=== PATIENT | female | born 1985 ===

== ENCOUNTER 2021-12-18 23:49 | Emergency (ER) | payer OTHER ==
--- NOTE | 2021-12-19 02:31 | ER ---
Nurse's Notes [facility] Name: Sowmya Bolanos Age: 36 yrs Sex: Female : 1985 Arrival Date: 12/18/2021 Time: 23:50 Bed 6 Private MD: Diagnosis: Other pneumonia, unspecified organism-Left Base;Shortness of breath;Influenza B Presentation: 12/19 00:06 Chief complaint: Patient states: I was diagnosed with bronchitis and strep last week. i kd3 have been having tightness in my chest and its hard to breath. Coronavirus screen: Vaccine status: Patient reports receiving the 1st dose of the Covid vaccine. Ebola Screen: No symptoms or risks identified at this time. Initial Sepsis Screen: Does the patient meet any 2 criteria? No. Patient's initial sepsis screen is negative. Does the patient have a suspected source of infection? No. Patient's initial sepsis screen is negative. Risk Assessment: Do you want to hurt yourself or someone else? Patient reports no desire to harm self or others. Onset of symptoms was November 2021. 00:06 Method Of Arrival: Ambulatory kd3 00:06 Acuity: ROWENA 3 kd3 Triage Assessment: 00:09 General: Appears in no apparent distress. Behavior is calm, cooperative. Pain: Denies kd3 pain. Respiratory: Reports shortness of breath at rest Onset: The symptoms/episode began/occurred gradually, the patient has mild shortness of breath. 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 - Social history:: Smoking status: unknown. Screenin:43 Abuse screen: Denies threats or abuse. Denies injuries from another. Nutritional aa9 screening: No deficits noted. Tuberculosis screening: No symptoms or risk factors identified. Fall Risk None identified. Assessment: 00:15 General: Appears in no apparent distress. Behavior is calm, cooperative. Pain: as6 Complains of pain in chest. Neuro: Level of Consciousness is awake, alert, Oriented to person, place, time, situation. Cardiovascular: Reports chest pain, shortness of breath. Respiratory: Reports shortness of breath cough that is Respiratory effort is even, unlabored. EENT: Reports nasal discharge that is watery. Vital Signs: 00:06 BP 127 / 77; Pulse 74; Resp 18; Temp 98(O); Pulse Ox 100% on R/A; Weight 88.45 kg; kd3 Height 5 ft. 3 in. (160.02 cm); Pain 0/10; 01:47 BP 111 / 73; Pulse 72; Resp 19 S; Pulse Ox 99% on R/A; kl 00:06 Body Mass Index 34.54 (88.45 kg, 160.02 cm) kd3 ED Course: 12/18 23:50 Patient arrived in ED. bp1 23:57 Clifton Lee RN is Primary Nurse. as6 12/19 00:09 Triage completed. kd3 00:09 Arm band placed on right wrist. kd3 00:20 Cory Oliver MD is Attending Physician. kdr 00:43 Bed in low position. Call light in reach. Side rails up X2. Adult w/ patient. Client aa9 placed on continuous cardiac and pulse oximetry monitoring. NIBP monitoring applied. Warm blanket given. 00:46 Flu Sent. as6 00:46 COVID-19 SARS RT PCR (Document "Date of Onset" if Symptomatic) Sent. as6 01:11 CXR XRAY In Process Unspecified. EDMS 02:47 No provider procedures requiring assistance completed. aa9 02:50 Patient did not have IV access during this emergency room visit. aa9 Administered Medications: 02:46 Drug: Zithromax (azithromycin) 500 mg Route: PO; aa9 02:46 Follow up: Response: No adverse reaction aa9 Medication: 02:50 VIS not applicable for this client. aa9 Outcome: 02:30 Discharge ordered by . kdr 02:49 Condition: stable aa9 02:49 Discharged to home ambulatory, with significant other. aa9 02:49 Discharge instructions given to patient, significant other, Instructed on discharge instructions, follow up and referral plans. medication usage, Prescriptions given X 1. 02:52 Patient left the ED. aa9 Signatures: Dispatcher [employer] Madai Naranjo RN RN kl Rittger, Kevin, MD MD kdr [place]ia[place], Brittany bp1 Clifton Lee RN RN as6 Mattie Bryan RN RN kd3 Latia Buckley RN RN aa9 Corrections: (The following items were deleted from the chart) 00:09 00:09 [place] Meds: None; kd3 kd3
--- NOTE | 2021-12-19 02:31 | EDPHYS ---
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 - Social history:: Smoking status: unknown. Vital Signs: 00:06 BP 127 / 77; Pulse 74; Resp 18; Temp 98(O); Pulse Ox 100% on R/A; Weight 88.45 kg; kd3 Height 5 ft. 3 in. (160.02 cm); Pain 0/10; 01:47 BP 111 / 73; Pulse 72; Resp 19 S; Pulse Ox 99% on R/A; kl 00:06 Body Mass Index 34.54 (88.45 kg, 160.02 cm) kd3 MDM: 02:30 Patient medically screened. kdr 12/19 00:22 Order name: COVID-19 SARS RT PCR (Document "Date of Onset" if Symptomatic); Complete kdr Time: 02:22 12/19 00:22 Order name: Flu; Complete Time: 02:22 kdr 12/19 00:48 Order name: CXR XRAY kdr Administered Medications: 02:46 Drug: Zithromax (azithromycin) 500 mg Route: PO; aa9 02:46 Follow up: Response: No adverse reaction aa9 Disposition Summary: 12/19/21 02:30 Discharge Ordered Location: Home kdr Problem: an ongoing problem kdr Symptoms: have improved kdr Condition: Stable kdr Diagnosis - Other pneumonia, unspecified organism - Left Base kdr - Shortness of breath kdr - Influenza B kdr Followup: kdr - With: Private Physician - When: 2 - 3 days - Reason: If symptoms return, Further diagnostic work-up, Recheck today's complaints, Continuance of care, Re-evaluation by your physician Discharge Instructions: - Discharge Summary Sheet kdr - Community-Acquired Pneumonia, Adult kdr - Influenza, Adult, [id number] kdr Forms: - Medication Reconciliation Form kdr - Thank You Letter kdr - Antibiotic Education kdr - Work release form aa9 Prescriptions: - Zithromax Z-Sorin 250 mg Oral Tablet - take 1 tablet by ORAL route once daily for 4 days; 4 tablet; Refills: 0, kdr Product Selection Permitted Addendum: 12/20/2021 03:05 Addendum: Patient was diagnosed with bronchitis and strep last week. Since then she has k dr continued to have chest tightness and cough. She states it feels hard to breathe. Signatures: Dispatcher [employer] EDRI Cory Oliver MD MD kdr Doucette, Kyli RN RN kd3 Latia Buckley RN RN aa9 Corrections: (The following items were deleted from the chart) 12/19 00:09 00:09 Home Meds: None; rocky3 kd3
[2021-12-19] MEDS ORDERED: AZITHROMYCIN 250 MG TAB ONE (02:43)
[2021-12-19 03:59] VITALS: BP 111/73; O2SAT 99
[2021-12-19 04:06] VITALS: TEMP 98
--- NOTE | 2021-12-19 12:27 | RAD REPORT ---
EXAM DESCRIPTION: RAD - Chest Single View - 12/19/2021 1:09 am CLINICAL HISTORY: 36 years Female, CHEST PAIN COMPARISON: None. FINDINGS: Low lung volumes accentuating the cardiomediastinal silhouette. Left basilar opacity. No pneumothorax or pleural effusion. Osseous structures are unremarkable. IMPRESSION: Left basilar atelectasis versus pneumonia. Electronically signed by: Anson Gill MD 12/19/2021 1:26 AM CDT Due to temporary technical issues with the PACS/Fluency reporting system, reports are being signed by the in house radiologist without review as a courtesy to ensure prompt reporting. The interpreting r adiologist is fully responsible for the content of the report.
--- NOTE | 2021-12-19 12:53 | EKG ---
Test Date: 2021-12-19 Test Time: 00:00:46 Irs Agent: CARMEN MEASUREMENT RESULTS: Intervals: Rate: 72 DC: 164 QRSD: 80 QT: 414 QTc: 453 [place]: P: 49 DC: 164 QRS: 14 T: 70 INTERPRETIVE STATEMENTS: Normal sinus rhythm Low voltage QRS Nonspecific ST abnormality Abnormal ECG No previous ECG available for comparison Electronically Signed On 12-19-21 12:52:47 CDT by Nelson Zuleta
== END 2021-12-19 02:52 | disposition home or self-care (01) ==
LOC: ER 23:49
DX: J10.00 Influenza due to other identified influenza virus with unspecified type of pneumonia (principal); Z20.822 Contact with and (suspected) exposure to COVID-19
CPT/HCPCS: 93005; 87804 ×2; 71045; U0003

== ENCOUNTER 2022-12-10 11:16 | Emergency (ER) | payer OTHER ==
--- OUTSIDE RECORDS SUMMARY | 2022-12-10 11:43 | XMS REPORT | Continuity of Care Document ---
:1985 Author Organization [facility] t Address [address] [place] [address] [address] [place] [address] Care Team Providers Name Role Phone Tasha Shine MD Primary Care Physician MARCE FALCON Attending Clinician Unavailable JUANA WILEY Attending Clinician Unavailable MARCE FALCON Attending Clinician Unavailable Marce Falcon Attending Clinician Tomas WHITFIELD, Provider Not In Attending Clinician Unavailable All Fuentes MD Attending Clinician VISIT, NURSE [facility] Attending Clinician Unavailable Alicia Gray APRN Attending Clinician Erik Logan MD Attending Clinician MARCE FALCON Admitting Clinician Unavailable Marce Falcon Admitting Clinician Marce Falcon MD Admitting Clinician Payers Payer Name Policy Type Policy Number Effective Date Expiration Date S surya [employer] CHOICE POS [id number] 2018 00:00:00 II Problems Condition Condition Condition Status Onset Resolution Last Treating Co mments Source Name Details Category Date Date Treatment Clinician Date Gastroesop Gastroesop Disease Active U T hageal hageal 2-14 Health reflux reflux 00:00: disease disease 00 without without esophagiti esophagiti s s Acute URI Acute URI Disease Active Overview: [place] 1-05 [facility] 00:00: g of this 00 note might be different from the original. Last Assessmen t & Plan: Formattin g of this note might be different from the original. Recommend symptomat ic treatment including NSAIDs, zyrtec, flonase and sudafed, also discussed the importanc e of good hand hygiene, rest and hydration . RTC as needed.Valeriy velasco's spouse did test positive for covid, we discussed home precautio ns while caring for ill spouse, all questions answered. Diabetes Diabetes Disease Active 2020-06 Overview: UT mellitus mellitus 1-15 [facility] 00:00: g of this 00 note might be different from the original. 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 recurrent recurrent 00:00: g of this major major 00 note depressive depressive might be disorder, disorder, different without without from the psychotic psychotic original. features features Last Assessmen t & Plan: Start escitalop stephanie 10mg po daily Follow up in 2 weeks to evaluate response. Generalize Generalize Disease Active 2018-06 Overview : UT d anxiety d anxiety 2-13 [facility] e[facility] disorder disorder 00:00: g of this 00 note might be different from the original. Last Assessmen t & Plan: Provided with EAP brochure. Pt will be switching to [employer] after the new year and will qualify for these services at that time. In the meantime, she can start on a SSRI and if she is having significa nt distress, we can look for a counselor who takes [employer] but for now she says she can wait. Will start escitalop stephanie 10mg po daily which she has prior experienc e and good results with. Hypertrigl Hypertrigl Disease Active Overview : UT yceridemia yceridemia 8-16 [facility] 00:00: g of this 00 note might be different from the original. Last Assessmen t & Plan: Lipid abnormali ties are worsening .Nutritio nal counselin g was provided. and Pharmacot herapy as ordered.L ipids will be reassesse d in 3 months Reviewed lab work done a week ago and current liver function is normal.Wi ll restart current med and recheck in 3 months.Valeriy velasco agrees with treatment plan and voices joann clark. All questions answered. Acne Acne Disease Active DE rosacea rosacea 8-16 Health 00:00: 00 Allergic Allergic Disease Active DE rhinitis rhinitis 6-25 Health 00:00: 00 Thyroiditi Thyroiditi Disease Active 2017-06 U T s s 2-13 Health 00:00: 00 Obesity Obesity Disease Active 2017-06 Overview: [place] 2-07 [facility] 00:00: g of this 00 note might be different from the original. Last Assessmen t & Plan: Obesity is worsening .continue current managemen t with bariatric surgeon and nutrition ist you see there at their office.Ge neral weight loss/life style modificat ion strategie s discussed (elicit support from others; identify saboteurs ; non-food rewards, etc). Type 2 Type 2 Disease Active DE diabetes diabetes 3-18 Health mellitus mellitus 00:00: without without 00 complicati complicati on, on, without without long-term long-term current current use of use of insulin insulin Dysmenorrh Dysmenorrh Disease Active U T ea ea 01-11 Health 00:00: 00 Hyperlipid Hyperlipi Problem Active 2021-05-01 Memoria emia demia 22:58:32 l (disorder) (disorder) [facility] [facility] Hypothyroi Hypothyro Problem Active 2021-05-01 Memoria dism idism 22:58:32 l (disorder) (disorder) He rmann Active Problem 05/01/2021 [facility] Mixed Mixed Problem Active 2021-05-01 Memor ia anxiety anxiety 22:58:32 l and and [place] depressive depressive disorder disorder (disorder) (disorder) Active Problem 05/01/2021 [facility] Body mass Body mass Problem Active 2021-05-01 Memoria index 40+ index 40+ 22:58:32 l - severely - severely He rmann obese obese (finding) (finding) Active Problem 05/01/2021 BMI-46.7 [facility] Allergies, Adverse Reactions, Alerts Allergy Allergy Status Severity Reaction(s) Onset Inactive Treating Comm ents Source Name Type Date Date Clinician No Known No Known Active Memori a Medicati Medicati l on on [place] Allergie Allergdayo s s Social History Social Habit Start Date Stop Date Quantity Comments Source Exposure to Not sure [facility] SARS-CoV-2 (event) [facility] Alcohol Frequency History [facility] Alcohol Std Drinks History [facility] Alcohol Binge Social History 2021-04-25 2021-04-25 [facility] 14:53:53 14:53:53 [place] Alcohol intake 2020-12-26 2020-12-26 Current drinker of [facility] 00:00:00 00:00:00 alcohol (finding) Tobacco Comment 2020-11-06 2020-11-06 occasionally vapes [facility] 00:00:00 00:00:00 Tobacco use and 2020-11-06 2020-11-06 Former smokeless [facility] exposure 00:00:00 00:00:00 tobacco user Alcohol Comment 2020-11-06 2020-11-06 social [facility] 00:00:00 00:00:00 Sex [birth year] F [facility] Health 00:00:00 00:00:00 Smoking Status Start Date Stop Date Source Ex-smoker 2020-11-06 00:00:00 2020-11-06 00:00:00 [place] [facility] Medications Ordered Filled Start Stop Current Ordering Indication Dosage Frequency Signature Comments Components Source Medication Medication Date Date Medication? Clinician (SIG) Name Name amoxicillin 2021- No TAKE 2 UT (Amoxil) 09-20-16 [facility] Health 500 MG 00:00: 00:00 BY MOUTH capsule 00 :00 EVERY 8 HOURS UNTIL GONE ibuprofen 2021- No TAKE 1 UT 800 MG 09-20-16 TABLET BY Health tablet 00:00: 00:00 MOUTH 00 :00 EVERY 8 HOURS NEEDED FOR DENTAL PAIN pantoprazol 2022- No [id number] 40mg Take 1 UT e 2-06 08-15 tablet (40 Health (Protonix) 00:00: 05:59 mg total) 40 MG EC 00 :00 by mouth 1 tablet (one) time each day before breakfast. Do not crush, chew, or split. pantoprazol 2022- No [id number] 40mg Take 1 UT e 2-14 08-07 tablet (40 Health (Protonix) 00:00: 05:59 mg total) 40 MG EC 00 :00 by mouth 1 tablet (one) time each day before breakfast. Do not crush, chew, or split. nystatin-tr 2020-06- No [id number] Q.5D Apply UT iamcinolone 07-07 topically He alth (Mycolog 00:00: 05:59 2 (two) II) cream 00 :00 times a day for 14 days. fluconazole 2020-06 No [id number] 100mg QD Take 1 UT (Diflucan) 07-07 tablet Health 100 MG 00:00: 05:59 (100 mg tablet 00 :00 total) by mouth 1 (one) time each day for 14 days. tramadol 2020-06 No 50 mg = 1 Erich quyen hydrochlori -07 tab, PO, l de 50 MG 22:02: Q6H, PRN Reshma nn Oral Tablet 00 Pain Score 7-10, X 1 day, # 5 tab, 0 Refill(s), Pharmacy: [facility] #[id number], 162.56, cm, 04/27/21 21:04:00 CDT, Height, 120, kg, 04/27/21 21:04:00 CDT, Weight pantoprazol 2020-06 Yes 40 mg = 1 M emoria e 40 mg -07 tab, PO, l oral 22:02: Daily, # [place] enteric 00 30 tab, 1 coated Refill(s), tablet Pharmacy: [facility] #[id number], 162.56, cm, 04/27/21 21:04:00 CDT, Height, 120, kg, 04/27/21 21:04:00 CDT, Weight Acetaminoph 2020-06 Yes 325 mg = 1 Memoria en 325 MG 1-07 tab, PO, l Oral Tablet 21:55: Q4H, PRN He rmann 00 Pain Score 4-6, 0 Refill(s) Ondansetron 2020-06 Yes 4 mg = 1 Me moria 4 MG 06-29 tab, PO, l Disintegrat 21:55: TID, PRN He rmann ing Tablet 00 Nausea / Vomiting, Dissolve tab under tongue, X 4 day, # 12 tab, 0 Refill(s), Pharmacy: [facility] #[id number], 162.56, cm, 04/27/21 21:04:00 CDT, Height, 120, kg, 04/27/21 21:04:00 CDT, Weight Acetaminoph 2020-06 No Notes: Do M emoria en 06-29 not exceed l 14:38: 4 gm/day. [place] 00 (Same as: Tylenol) pantoprazol 2020-06 Yes UT e 06-29 Health (ProtoNix) 00:00: 40 MG EC 00 tablet ondansetron 2020-06 Yes UT ODT 06-29 Health (Zofran-ODT 00:00: ) 4 MG 00 disintegrat ing tablet pantoprazol 2020-06 Yes UT e 06-29 Health (ProtoNix) 00:00: 40 MG EC 00 tablet ondansetron 2020-06 Yes UT ODT 06-29 Health (Zofran-ODT 00:00: ) 4 MG 00 disintegrat ing tablet pantoprazol 2020-06- No UT e 06-29 Health (ProtoNix) 00:00: 00:00 40 MG EC 00 :00 tablet ondansetron 2020-06- No UT ODT 06-29 Health (Zofran-ODT 00:00: 00:00 ) 4 MG 00 :00 disintegrat ing tablet Ofirmev 2020-06 No Notes: Memoria 06-28 Infuse l 15:08: over 15 Ralph 00 minutes Do not exceed 4gm/day of acetaminop hen MEDICATION WASTE Product Size: 1000 mg Product Wasted: ___ mg Ofirmev 2020-06 No 1,000 mg, Memor ia 06-28 Route: IV, l 15:00: Drug form: [place] 00 INJ, PRE OP, Start date: 04/28/21 10:00:00 CDT, Duration: 1 day, Stop date: 04/29/21 8:59:00 PRECINCT CAPTAIN, 0 Promethazin 2020-06 No Notes: Do M emoria e 06-28 not give l 10:05: IV push. (Same as: Phenergan) Ondansetron 2020-06 No Notes: Erich quyen 06-28 (Same as: l 10:05: Zofran) MEDICATION WASTE Product Size: 4 mg Product Wasted: ___ mg Promethazin 2020-06 No Notes: Do M emoria e 06-28 not give l 09:55: IV push. (Same as: Phenergan) Ondansetron 2020-06 No Notes: Erich quyen 06-28 (Same as: l 09:54: Zofran) MEDICATION WASTE Product Size: 4 mg Product Wasted: ___ mg Dilaudid 2020-06 No Notes: Memoria 06-28 Same as l 03:08: Dilaudid Lovenox 2020-06 No Notes: Memoria 06-28 (Same as: l 02:00: Lovenox) Acetaminoph 2020-06 No 1,000 mg, M emoria en 06-27 Route: PO, l 23:00: Q6H, Dosing Weight 119.8, kg, Start date: 04/27/21 18:00:00 CDT, Duration: 30 day, Stop date: 05/27/21 12:00:00 PRECINCT CAPTAIN Ondansetron 2020-06 No Notes: Erich quyen 06-27 (Same as: l 21:00: Zofran) MEDICATION WASTE Product Size: 4 mg Product Wasted: 0 mg ondansetron 2020-06 No Route: IV, Memoria (ANES) 06-27 Drug form: l 20:13: INJ, ONCE, Stop date: 04/27/21 15:13:00 CDT glycopyrrol 2020-06 No Route: IV, Memoria ate (ANES) 06-27 Drug form: l 20:13: INJ, ONCE, Stop date: 04/27/21 15:13:00 CDT neostigmine 2020-06 No Route: IV, Memoria (ANES) 1-05 Drug form: l 20:13: INJ, ONCE, Ralph 00 Stop date: 04/27/21 15:13:00 CDT Hydralazine 2020-06 No 10 mg, Erich quyen 1-05 Route: l 19:55: IVP, Ralph 00 Q20Min, Dosing Weight 119.8, kg, PRN Elevated BP, Start date: 04/27/21 14:55:00 CDT, Duration: 2 doses or times, Stop date: Limited # of times Labetalol 2020-06 No 10 mg, 2 Erich quyen 1-05 mL, Route: l 19:55: IVP, Drug Ralph 00 form: INJ, Q5Min, Dosing Weight 119.8, kg, PRN Elevated BP, Start date: 04/27/21 14:55:00 CDT, Duration: 5 doses or times, Stop date: 04/30/21 19:00:00 PRECINCT CAPTAIN, 0 Oxycodone 2020-06 No 5 mg, Memoria Hydrochlori -05 Route: PO, l de 5 MG 19:55: Drug form: Herm maki Oral Tablet 00 TAB, Q4H, Dosing Weight 119.8, kg, PRN Pain Score 4-6, Start date: 04/27/21 14:55:00 CDT, Duration: 30 day, Stop date: 05/27/21 14:54:00 PRECINCT CAPTAIN Fentanyl 2020-06 No 25 Memoria 1-05 microgram, l 19:55: Route: [place] 00 IVP, Q5Min, Dosing Weight 119.8, kg, PRN Pain Score 4-6, Priority: Routine, Start date: 04/27/21 14:55:00 CDT, Duration: 4 doses or times, Stop date: Limited # of times Hydromorpho 2020-06 No 0.5 mg, Mem oria ne -05 Route: l 19:55: IVP, Ralph 00 Q5Min, Dosing Weight 119.8, kg, PRN Pain Score 7-10, Start date: 04/27/21 14:55:00 CDT, Duration: 4 doses or times, Stop date: Limited # of times Flumazenil 2020-06 No 0.2 mg, Erich quyen 1-05 Route: l 19:55: IVP, PRN, [place] 00 Dosing Weight 119.8, kg, PRN Benzodiaze pine Reversal, Initial dose, Start date: 04/27/21 14:55:00 CDT, Duration: 30 day, Stop date: 05/27/21 13:54:00 PRECINCT CAPTAIN Naloxone 2020-06 No 0.4 mg, Memori a 06-27 Route: l 19:55: IVP, Q2MIN, Dosing Weight 119.8, kg, PRN Narcotic Reversal, Start date: 04/27/21 14:55:00 CDT, Duration: 8 doses or times, Stop date: Limited # of times Ondansetron 2020-06 No 4 mg, Memor ia 06-27 Route: l 19:55: IVP, ONCE, Dosing Weight 119.8, kg, PRN Nausea & Vomiting, Start date: 04/27/21 14:55:00 CDT Calcium 2020-06 No 1,000 mL, Memor ia Chloride 06-27 Rate: 125 l 0.0014 19:50: ml/hr, MEQ/ML / 00 Infuse Potassium over: 8 Chloride hr, Route: 0.004 IV, Dosing MEQ/ML / Weight Sodium 119.8 kg, Chloride Total 0.103 Volume: MEQ/ML / 1,000, Sodium Start Lactate date: 0.028 04/27/21 MEQ/ML 14:50:00 Injectable CDT, Solution Duration: 30 day, Stop date: 05/27/21 14:49:00 PRECINCT CAPTAIN, BSA: 2.37 m2, 0 Sugammadex 2020-06 No Notes: Memor ia 06-27 (Same as: l 19:26: [place]) dexamethaso 2020-06 No Route: IV, Memoria ne (ANES) 06-27 Drug form: l 18:47: INJ, ONCE, Stop date: 04/27/21 13:47:00 CDT cefOXitin 2020-06 No Route: IV, Me moria (ANES) 06-27 Drug form: l 18:41: INJ, ONCE, Stop date: 04/27/21 13:41:00 CDT ketAMINE 2020-06 No Route: IV, Mem oria (ANES) 06-27 Drug form: l 18:41: INJ, ONCE, Stop date: 04/27/21 13:41:00 CDT lidocaine 2020-06 No Route: IV, Me moria (ANES) - Drug form: l 18:31: INJ, ONCE, Stop date: 04/27/21 13:31:00 CDT propofol 2020-06 No Route: IV, Mem oria (ANES) - Drug form: l 18:31: INJ, ONCE, Stop date: 04/27/21 13:31:00 CDT rocuronium 2020-06 No Route: IV, M emoria (ANES) 06-27 Drug form: l 18:31: INJ, ONCE, Stop date: 04/27/21 13:31:00 CDT esmolol 2020-06 No Route: IV, Erich quyen (ANES) - Drug form: l 18:31: INJ, ONCE, Stop date: 04/27/21 13:31:00 CDT Acetaminoph 2020-06 No Notes: Erich quyen en -05 Infuse l 18:00: over 15 minutes Do not exceed 4gm/day of acetaminop hen MEDICATION WASTE Product Size: 1000 mg Product Wasted: 0 mg celecoxib 2020-06 No Notes: Memori a 1-05 NSAID. l 18:00: Please check indication . Not for seizure. (Same As: CeleBREX) Tramadol 2020-06 No Notes: Not Mem oria -05 to exceed l 18:00: 400mg/day. (Same As: Ultram) Promethazin 2020-06 No Notes: Erich quyen e -05 (Same as: l 18:00: Phenergan) midazolam 2020-06 No Route: IV, Me moria (ANES) -05 Drug form: l 17:56: SOLN, 00 ONCE, Stop date: 04/27/21 12:56:00 CDT hydromorpho 2020-06 No Route: IV, Memoria ne (ANES) - Drug form: l 17:56: INJ, ONCE, Stop date: 04/27/21 12:56:00 CDT Isolyte S 2020-06 No Route: IV, Me moria PH 7.4 1-05 Total l (ANES) 1000 17:25: Volume: Her dorsey mL 00 1,000, Start date: 04/27/21 12:25:00 CDT, Stop date: 04/27/21 13:25:00 CDT Lactated 2020-06 No Route: IV, Mem oria Ringers 1-05 Total l Injection 17:25: Volume: Reshma nn IV (ANES) 00 1,000, 1000 mL Start date: 04/27/21 12:25:00 CDT, Stop date: 04/27/21 13:25:00 CDT heparin 2020-06 No 5,000 Memoria 5000 1-05 unit, l units/mL 17:00: Route: [place] injectable 00 SUB-Q, solution Drug form: INJ, Q6H, Dosing Weight 123.4, kg, Start date: 04/27/21 12:00:00 CDT, Duration: 30 day, Stop date: 05/27/21 6:00:00 PRECINCT CAPTAIN heparin 2020-06 No 5,000 Memoria 5000 1-05 unit, l units/mL 13:21: Route: Ralph injectable 00 SUB-Q, solution Drug form: INJ, ONCE, Dosing Weight 123.4, kg, Start date: 04/27/21 8:21:00 CDT, Stop date: 04/27/21 8:21:00 CDT Isolyte S 2020-06 No 1,000 mL, Mem oria PH 7.4 1-05 Rate: 75 l 1,000 mL 13:04: ml/hr, Infuse over: 13.3 hr, Route: IV, Dosing Weight 123.4 kg, Total Volume: 1,000, Start date: 04/27/21 8:04:00 CDT, Duration: 30 day, Stop date: 05/27/21 8:03:00 PRECINCT CAPTAIN, BSA: 2.41 m2, 0 Neurontin 2020-06 No Notes: Memori a 1-05 (Same as: l 04:00: Neurontin) [place] 00 Celebrex 2020-06 No Notes: Memoria 1-05 NSAID. l 04:00: Please check indication . Not for seizure. (Same As: CeleBREX) Mefoxin 2020-06 No Notes: Memoria 1-05 (Same As: l 04:00: Mefoxin) [place] 00 MEDICATION WASTE Product Size: 2000 mg Product Wasted: ___ mg Scopolamine 2020-06 No Notes: Erich quyen -05 Remove old l 04:00: patch [place] 00 before applicatio n of new patch Change patch every 72 hours (Same as: Transderm- Scop) Ofirmev 2020-06 No Notes: Memoria -05 Infuse l 04:00: over 15 [place] 00 minutes Do not exceed 4gm/day of acetaminop hen MEDICATION WASTE Product Size: 1000 mg Product Wasted: ___ mg levothyroxi 2020-06 Yes 50 Memori a ne 50 mcg 1-03 microgram l (0.05 mg) 15:03: = 1 tab, Herm maki oral tablet 00 PO, Daily, # 30 tab, 0 Refill(s) Metformin 2020-06 No 1,000 mg = Me moria hydrochlori -03 1 tab, PO, l de 1000 MG 15:03: BID-Meals, H ermann Oral Tablet 00 # 30 tab, 0 Refill(s) 0.5 ML 2020-06 No 0.75 mg, Memoria dulaglutide -03 SUB-Q, l 1.5 MG/ML 15:02: qWeek, 0 Herm maki Prefilled 00 Refill(s) Syringe [Trulicity] Fenofibrate 2020-06 No 160 mg = 1 Memoria 160 MG Oral 1-03 tab, PO, l Tablet 15:02: Daily, # Ralph 00 30 tab, 0 Refill(s) escitalopra 2020-06 Yes 10 mg = 1 M emoria m 10 mg 1-03 tab, PO, l oral tablet 15:02: Daily, # He rmann 00 30 tab, 0 Refill(s) metFORMIN Yes 1000mg Take 1,000 UT (Glucophage 9-10 mg by Health ) 1000 MG 00:00: mouth 2 tablet 00 (two) times a day with meals. metFORMIN Yes 1000mg Take 1,000 UT (Glucophage 9-10 mg by Health ) 1000 MG 00:00: mouth 2 tablet 00 (two) times a day with meals. metFORMIN 2021-0 Yes 1000mg Take 1,000 UT (Glucophage 9-10 mg by Health ) 1000 MG 00:00: mouth 2 tablet 00 (two) times a day with meals. metFORMIN 2021-0 Yes 1000mg Take 1,000 UT (Glucophage 9-10 mg by Health ) 1000 MG 00:00: mouth 2 tablet 00 (two) times a day with meals. metFORMIN 2021-0 Yes 1000mg Take 1,000 UT (Glucophage 9-10 mg by Health ) 1000 MG 00:00: mouth 2 tablet 00 (two) times a day with meals. metFORMIN 202-0 Yes 1000mg Take 1,000 UT (Glucophage 9-10 mg by Health ) 1000 MG 00:00: mouth 2 tablet 00 (two) times a day with meals. metFORMIN 2020-0 Yes 1000mg Take 1,000 UT (Glucophage 9-10 mg by Health ) 1000 MG 00:00: mouth 2 tablet 00 (two) times a day with meals. metFORMIN 2020-0 Yes 1000mg Take 1,000 UT (Glucophage 9-10 mg by Health ) 1000 MG 00:00: mouth 2 tablet 00 (two) times a day with meals. metFORMIN 2020-0 2021- No 1000mg Take 1,000 UT (Glucophage 9-10 12-20 mg by Health ) 1000 MG 00:00: 00:00 mouth 2 tablet 00 :00 (two) times a day with meals. Trulicity Yes INJECT UT 0.75 9-02 0.75 MG Health MG/0.5ML 00:00: UNDER THE solution 00 SKIN PER pen-injecto WEEK. r Trulicity 2020-0 Yes INJECT UT 0.75 9-02 0.75 MG Health MG/0.5ML 00:00: UNDER THE solution 00 SKIN PER pen-injecto WEEK. r Trulicity 2020-0 Yes INJECT UT 0.75 9-02 0.75 MG Health MG/0.5ML 00:00: UNDER THE solution 00 SKIN PER pen-injecto WEEK. r Trulicity 2020-0 Yes INJECT UT 0.75 9-02 0.75 MG Health MG/0.5ML 00:00: UNDER THE solution 00 SKIN PER pen-injecto WEEK. r Trulicity 2020-0 Yes INJECT UT 0.75 9-02 0.75 MG Health MG/0.5ML 00:00: UNDER THE solution 00 SKIN PER pen-injecto WEEK. r Trulicity Yes INJECT UT 0.75 9-02 0.75 MG Health MG/0.5ML 00:00: UNDER THE solution 00 SKIN PER pen-injecto WEEK. r Trulicity Yes INJECT UT 0.75 9-02 0.75 MG Health MG/0.5ML 00:00: UNDER THE solution 00 SKIN PER pen-injecto WEEK. r Trulicity 0 Yes INJECT UT 0.75 9-02 0.75 MG Health MG/0.5ML 00:00: UNDER THE solution 00 SKIN PER pen-injecto WEEK. r Trulicity 202- No INJECT UT 0.75 9-02 12-20 0.75 MG Health MG/0.5ML 00:00: 00:00 UNDER THE solution 00 :00 SKIN PER pen-injecto WEEK. r ergocalcife 2020- No [id number] Take 1 U T rol 11-27 capsule Health (Vitamin 00:00: 04:59 (50,000 D2) 1.25 MG 00 :00 Units (21084 UT) total) by capsule mouth 2 (two) times a week. ergocalcife 2020- No [id number] Take 1 U T rol 11-27 capsule Health (Vitamin 00:00: 04:59 (50,000 D2) 1.25 MG 00 :00 Units (51308 UT) total) by capsule mouth 2 (two) times a week. ergocalcife 2020- No [id number] Take 1 U T rol 11-27 capsule Health (Vitamin 00:00: 04:59 (50,000 D2) 1.25 MG 00 :00 Units (94048 UT) total) by capsule mouth 2 (two) times a week. ergocalcife 2020- No [id number] Take 1 U T rol 11-27 capsule Health (Vitamin 00:00: 04:59 (50,000 D2) 1.25 MG 00 :00 Units (18628 UT) total) by capsule mouth 2 (two) times a week. escitalopra 2019-06 Yes 10mg QD Take 10 mg UT m (Lexapro) 2-23 by mouth 1 He alth 10 MG 00:00: (one) time tablet 00 each day. escitalopra 2020- Yes 10mg QD Take 10 mg UT m (Lexapro) 2-23 by mouth 1 He alth 10 MG 00:00: (one) time tablet 00 each day. escitalopra 2019- Yes 10mg QD Take 10 mg UT m (Lexapro) 2-23 by mouth 1 He alth 10 MG 00:00: (one) time tablet 00 each day. escitalopra 2019- Yes 10mg QD Take 10 mg UT m (Lexapro) 2-23 by mouth 1 He alth 10 MG 00:00: (one) time tablet 00 each day. escitalopra 2019- Yes 10mg QD Take 10 mg UT m (Lexapro) 2-23 by mouth 1 He alth 10 MG 00:00: (one) time tablet 00 each day. escitalopra 2019- Yes 10mg QD Take 10 mg UT m (Lexapro) 2-23 by mouth 1 He alth 10 MG 00:00: (one) time tablet 00 each day. escitalopra 2019- Yes 10mg QD Take 10 mg UT m (Lexapro) 2-23 by mouth 1 He alth 10 MG 00:00: (one) time tablet 00 each day. escitalopra 2019- Yes 10mg QD Take 10 mg UT m (Lexapro) 2-23 by mouth 1 He alth 10 MG 00:00: (one) time tablet 00 each day. escitalopra 2019- Yes 10mg QD Take 10 mg UT m (Lexapro) 2-23 by mouth 1 He alth 10 MG 00:00: (one) time tablet 00 each day. escitalopra 2019- Yes 10mg QD Take 10 mg UT m (Lexapro) 2-23 by mouth 1 He alth 10 MG 00:00: (one) time tablet 00 each day. escitalopra 2020- Yes 10mg QD Take 10 mg UT m (Lexapro) 2-23 by mouth 1 He alth 10 MG 00:00: (one) time tablet 00 each day. escitalopra 2019- Yes 10mg QD Take 10 mg UT m (Lexapro) 2-23 by mouth 1 He alth 10 MG 00:00: (one) time tablet 00 each day. escitalopra 2020-1 Yes 10mg QD Take 10 mg UT m (Lexapro) 2-23 by mouth 1 He alth 10 MG 00:00: (one) time tablet 00 each day. escitalopra 2020-1 Yes 10mg QD Take 10 mg UT m (Lexapro) 2-23 by mouth 1 He alth 10 MG 00:00: (one) time tablet 00 each day. escitalopra 2020- Yes 10mg QD Take 10 mg UT m (Lexapro) 2-23 by mouth 1 He alth 10 MG 00:00: (one) time tablet 00 each day. escitalopra 2020- Yes 10mg QD Take 10 mg UT m (Lexapro) 2-23 by mouth 1 He alth 10 MG 00:00: (one) time tablet 00 each day. escitalopra 2020- Yes 10mg QD Take 10 mg UT m (Lexapro) 2-23 by mouth 1 He alth 10 MG 00:00: (one) time tablet 00 each day. escitalopra 2020- Yes 10mg QD Take 10 mg UT m (Lexapro) 2-23 by mouth 1 He alth 10 MG 00:00: (one) time tablet 00 each day. escitalopra 2020-1 Yes 10mg QD Take 10 mg UT m (Lexapro) 2-23 by mouth 1 He alth 10 MG 00:00: (one) time tablet 00 each day. escitalopra 2020- Yes 10mg QD Take 10 mg UT m (Lexapro) 2-23 by mouth 1 He alth 10 MG 00:00: (one) time tablet 00 each day. escitalopra 2020- Yes 10mg QD Take 10 mg UT m (Lexapro) 2-23 by mouth 1 He alth 10 MG 00:00: (one) time tablet 00 each day. escitalopra 2020-1 Yes 10mg QD Take 10 mg UT m (Lexapro) 2-23 by mouth 1 He alth 10 MG 00:00: (one) time tablet 00 each day. escitalopra 2020- Yes 10mg QD Take 10 mg UT m (Lexapro) 2-23 by mouth 1 He alth 10 MG 00:00: (one) time tablet 00 each day. escitalopra 2020-1 Yes 10mg QD Take 10 mg UT m (Lexapro) 2-23 by mouth 1 He alth 10 MG 00:00: (one) time tablet 00 each day. escitalopra 2020-1 Yes 10mg QD Take 10 mg UT m (Lexapro) 2-23 by mouth 1 He alth 10 MG 00:00: (one) time tablet 00 each day. escitalopra 2020-1 Yes 10mg QD Take 10 mg UT m (Lexapro) 2-23 by mouth 1 He alth 10 MG 00:00: (one) time tablet 00 each day. escitalopra 2020- Yes 10mg QD Take 10 mg [facility] (Lexapro) 2-23 by mouth 1 [facility] 10 MG 00:00: (one) time tablet 00 each day. escitalopra 2020- Yes 10mg QD Take 10 mg [facility] (Lexapro) 2-23 by mouth 1 [facility] 10 MG 00:00: (one) time tablet 00 each day. escitalopra 2020- Yes 10mg QD Take 10 mg [facility] (Lexapro) 2-23 by mouth 1 [facility] 10 MG 00:00: (one) time tablet 00 each day. escitalopra 2020-1 Yes 10mg QD Take 10 mg [facility] (Lexapro) 2-23 by mouth 1 [facility] 10 MG 00:00: (one) time tablet 00 each day. escitalopra 2020- Yes 10mg QD Take 10 mg [facility] (Lexapro) 2-23 by mouth 1 [facility] 10 MG 00:00: (one) time tablet 00 each day. escitalopra 2020-1 Yes 10mg QD Take 10 mg [facility] (Lexapro) 2-23 by mouth 1 [facility] 10 MG 00:00: (one) time tablet 00 each day. fenofibrate 2019- Yes 160mg QD Take 160 [facility] (Triglide[facility] 160 MG 00:00: mouth 1 tablet 00 (one) time each day. fenofibrate 2020- Yes 160mg QD Take 160 [facility] (Triglide) 0-[facility] 160 MG 00:00: mouth 1 tablet 00 (one) time each day. fenofibrate 2019- Yes 160mg QD Take 160 [facility] (Triglide) 0-[facility] 160 MG 00:00: mouth 1 tablet 00 (one) time each day. fenofibrate 2020- Yes 160mg QD Take 160 [facility] (Triglide) 0-[facility] 160 MG 00:00: mouth 1 tablet 00 (one) time each day. fenofibrate 2019- Yes 160mg QD Take 160 [facility] (Triglide) 0-[facility] 160 MG 00:00: mouth 1 tablet 00 (one) time each day. fenofibrate 2019- Yes 160mg QD Take 160 [facility] (Triglide) 0-[facility] 160 MG 00:00: mouth 1 tablet 00 (one) time each day. fenofibrate 2019-06 Yes 160mg QD Take 160 [facility] (Triglide) 0-[facility] 160 MG 00:00: mouth 1 tablet 00 (one) time each day. fenofibrate 2019-06 Yes 160mg QD Take 160 [facility] (Triglide) 0-21 mg by [employer] 160 MG 00:00: mouth 1 tablet 00 (one) time each day. fenofibrate 2019-06 Yes 160mg QD Take 160 [facility] (Triglide) 0-21 mg by [employer] 160 MG 00:00: mouth 1 tablet 00 (one) time each day. fenofibrate 2019-06 Yes 160mg QD Take 160 [facility] (Triglide) 0-21 mg by [facility] 160 MG 00:00: mouth 1 tablet 00 (one) time each day. fenofibrate 2019-06 Yes 160mg QD Take 160 [facility] (Triglide) 0-[facility] 160 MG 00:00: mouth 1 tablet 00 (one) time each day. fenofibrate 2019-06 Yes 160mg QD Take 160 [facility] (Triglide) 0-[facility] 160 MG 00:00: mouth 1 tablet 00 (one) time each day. fenofibrate 2019-1 Yes 160mg QD Take 160 [facility] (Triglide) 0-[facility] 160 MG 00:00: mouth 1 tablet 00 (one) time each day. fenofibrate 2019- Yes 160mg QD Take 160 [facility] (Triglide) 0-[facility] 160 MG 00:00: mouth 1 tablet 00 (one) time each day. fenofibrate 2019- Yes 160mg QD Take 160 [facility] (Triglide) 0-[facility] 160 MG 00:00: mouth 1 tablet 00 (one) time each day. fenofibrate 2019- Yes 160mg QD Take 160 [facility] (Triglide) 0-[facility] 160 MG 00:00: mouth 1 tablet 00 (one) time each day. fenofibrate 2019-06 Yes 160mg QD Take 160 [facility] (Triglide) 0-[facility] 160 MG 00:00: mouth 1 tablet 00 (one) time each day. fenofibrate 2019-06 Yes 160mg QD Take 160 [facility] (Triglide) 0-[facility] 160 MG 00:00: mouth 1 tablet 00 (one) time each day. fenofibrate 2019-06 Yes 160mg QD Take 160 [facility] (Triglide) 0-[facility] 160 MG 00:00: mouth 1 tablet 00 (one) time each day. fenofibrate 2019-06 Yes 160mg QD Take 160 [facility] (Triglide) 0-21 mg by [employer] 160 MG 00:00: mouth 1 tablet 00 (one) time each day. fenofibrate 2019-06 Yes 160mg QD Take 160 [facility] (Triglide) 0-[facility] 160 MG 00:00: mouth 1 tablet 00 (one) time each day. fenofibrate 2019-06 Yes 160mg QD Take 160 [facility] (Triglide) 0-[facility] 160 MG 00:00: mouth 1 tablet 00 (one) time each day. fenofibrate 2019-06 Yes 160mg QD Take 160 [facility] (Triglide) 0-[facility] 160 MG 00:00: mouth 1 tablet 00 (one) time each day. fenofibrate 2019-06 Yes 160mg QD Take 160 [facility] (Triglide) 0-21 [facility] 160 MG 00:00: mouth 1 tablet 00 (one) time each day. fenofibrate 2019- Yes 160mg QD Take 160 [facility] (Triglide) 0-[facility] 160 MG 00:00: mouth 1 tablet 00 (one) time each day. fenofibrate 2019-06 Yes 160mg QD Take 160 [facility] (Triglide) 0-[facility] 160 MG 00:00: mouth 1 tablet 00 (one) time each day. fenofibrate 2020-1 Yes 160mg QD Take 160 [facility] (Triglide) 0-[facility] 160 MG 00:00: mouth 1 tablet 00 (one) time each day. fenofibrate 2020-1 Yes 160mg QD Take 160 [facility] (Triglide) 0-21 [facility] 160 MG 00:00: mouth 1 tablet 00 (one) time each day. fenofibrate 2020-1 Yes 160mg QD Take 160 [facility] (Triglide) 0-[facility] 160 MG 00:00: mouth 1 tablet 00 (one) time each day. fenofibrate 2020- 202- No 160mg QD Take 160 [facility] (Triglide) 0-21 12-20 mg [facility] 160 MG 00:00: 00:00 mouth 1 tablet 00 :00 (one) time each day. metFORMIN 2020-0 Yes 500mg Q12H Take 500 [facility] (Glucophage 00:00: mouth -XR) 500 MG 00 every 12 24 hr (twelve) tablet hours. levothyroxi 2020-0 Yes 1{tbl} QD Take 1 [facility] tablet [facility] (Synthroid, 00:00: mouth 1 Levoxyl) 50 00 (one) time MCG tablet each day. metFORMIN 2020-0 Yes 500mg Q12H Take 500 [facility] (Glucophage 00:00: mouth -XR) 500 MG 00 every 12 24 hr (twelve) tablet hours. levothyroxi 2020-0 Yes 1{tbl} QD Take 1 [facility] (Synthroid, 00:00: mouth 1 Levoxyl) 50 00 (one) time MCG tablet each day. metFORMIN 2020-0 Yes 500mg Q12H Take 500 [facility] (Glucophage 00:00: mouth -XR) 500 MG 00 every 12 24 hr (twelve) tablet hours. levothyroxi 2020-0 Yes 1{tbl} QD Take 1 [facility] (Synthroid, 00:00: mouth 1 Levoxyl) 50 00 (one) time MCG tablet each day. metFORMIN 2020-0 Yes 500mg Q12H Take 500 [facility] (Glucophage 00:00: mouth -XR) 500 MG 00 every 12 24 hr (twelve) tablet hours. levothyroxi 2020-0 Yes 1{tbl} QD Take 1 [facility] (Synthroid, 00:00: mouth 1 Levoxyl) 50 00 (one) time MCG tablet each day. metFORMIN 2020-0 Yes 500mg Q12H Take 500 [facility] (Glucophage 00:00: mouth -XR) 500 MG 00 every 12 24 hr (twelve) tablet hours. levothyroxi 2020-0 Yes 1{tbl} QD Take 1 [facility] (Synthroid, 00:00: mouth 1 Levoxyl) 50 00 (one) time MCG tablet each day. metFORMIN 2020-0 Yes 500mg Q12H Take 500 [facility] (Glucophage 00:00: mouth -XR) 500 MG 00 every 12 24 hr (twelve) tablet hours. levothyroxi 2020-0 Yes 1{tbl} QD Take 1 [facility] (Synthroid, 00:00: mouth 1 Levoxyl) 50 00 (one) time MCG tablet each day. metFORMIN 2020-0 Yes 500mg Q12H Take 500 [facility] 6[facility] (Glucophage 00:00: mouth -XR) 500 MG 00 every 12 24 hr (twelve) tablet hours. levothyroxi 2020-0 Yes 1{tbl} QD Take 1 [facility] (Synthroid, 00:00: mouth 1 Levoxyl) 50 00 (one) time MCG tablet each day. metFORMIN 2020-0 Yes 500mg Q12H Take 500 [facility] (Glucophage 00:00: mouth -XR) 500 MG 00 every 12 24 hr (twelve) tablet hours. levothyroxi 2020-0 Yes 1{tbl} QD Take 1 [facility] (Synthroid, 00:00: mouth 1 Levoxyl) 50 00 (one) time MCG tablet each day. metFORMIN 2020-0 Yes 500mg Q12H Take 500 [facility] (Glucophage 00:00: mouth -XR) 500 MG 00 every 12 24 hr (twelve) tablet hours. levothyroxi 2020-0 Yes 1{tbl} QD Take 1 [facility] (Synthroid, 00:00: mouth 1 Levoxyl) 50 00 (one) time MCG tablet each day. metFORMIN 2020-0 Yes 500mg Q12H Take 500 [facility] (Glucophage 00:00: mouth -XR) 500 MG 00 every 12 24 hr (twelve) tablet hours. levothyroxi 2020-0 Yes 1{tbl} QD Take 1 [facility] (Synthroid, 00:00: mouth 1 Levoxyl) 50 00 (one) time MCG tablet each day. metFORMIN 2020-0 Yes 500mg Q12H Take 500 [facility] (Glucophage 00:00: mouth -XR) 500 MG 00 every 12 24 hr (twelve) tablet hours. levothyroxi 2020-0 Yes 1{tbl} QD Take 1 [facility] (Synthroid, 00:00: mouth 1 Levoxyl) 50 00 (one) time MCG tablet each day. metFORMIN 2020-0 Yes 500mg Q12H Take 500 [facility] (Glucophage 00:00: mouth -XR) 500 MG 00 every 12 24 hr (twelve) tablet hours. levothyroxi 2020-0 Yes 1{tbl} QD Take 1 [facility] (Synthroid, 00:00: mouth 1 Levoxyl) 50 00 (one) time MCG tablet each day. metFORMIN 2020-0 Yes 500mg Q12H Take 500 [facility] 6-[facility] (Glucophage 00:00: mouth -XR) 500 MG 00 every 12 24 hr (twelve) tablet hours. levothyroxi 2020-0 Yes 1{tbl} QD Take 1 [facility] (Synthroid, 00:00: mouth 1 Levoxyl) 50 00 (one) time MCG tablet each day. metFORMIN 2020-0 Yes 500mg Q12H Take 500 [facility] 6-[facility] (Glucophage 00:00: mouth -XR) 500 MG 00 every 12 24 hr (twelve) tablet hours. levothyroxi 2020-0 Yes 1{tbl} QD Take 1 [facility] (Synthroid, 00:00: mouth 1 Levoxyl) 50 00 (one) time MCG tablet each day. metFORMIN 2020-0 Yes 500mg Q12H Take 500 [facility] 6-[facility] (Glucophage 00:00: mouth -XR) 500 MG 00 every 12 24 hr (twelve) tablet hours. levothyroxi 2020-0 Yes 1{tbl} QD Take 1 [facility] (Synthroid, 00:00: mouth 1 Levoxyl) 50 00 (one) time MCG tablet each day. metFORMIN 2020-0 Yes 500mg Q12H Take 500 [facility] 6-[facility] (Glucophage 00:00: mouth -XR) 500 MG 00 every 12 24 hr (twelve) tablet hours. levothyroxi 2020-0 Yes 1{tbl} QD Take 1 [facility] (Synthroid, 00:00: mouth 1 Levoxyl) 50 00 (one) time MCG tablet each day. metFORMIN 2020-0 Yes 500mg Q12H Take 500 [facility] 6-[facility] (Glucophage 00:00: mouth -XR) 500 MG 00 every 12 24 hr (twelve) tablet hours. levothyroxi 2020-0 Yes 1{tbl} QD Take 1 [facility] (Synthroid, 00:00: mouth 1 Levoxyl) 50 00 (one) time MCG tablet each day. metFORMIN 2020-0 Yes 500mg Q12H Take 500 [facility] 6-15 [facility] (Glucophage 00:00: mouth -XR) 500 MG 00 every 12 24 hr (twelve) tablet hours. levothyroxi 2020-0 Yes 1{tbl} QD Take 1 [facility] (Synthroid, 00:00: mouth 1 Levoxyl) 50 00 (one) time MCG tablet each day. levothyroxi 2020-0 Yes 1{tbl} QD Take 1 [facility] (Synthroid, 00:00: mouth 1 Levoxyl) 50 00 (one) time MCG tablet each day. levothyroxi 2020-0 Yes 1{tbl} QD Take 1 [facility] (Synthroid, 00:00: mouth 1 Levoxyl) 50 00 (one) time MCG tablet each day. levothyroxi 2020-0 Yes 1{tbl} QD Take 1 [facility] (Synthroid, 00:00: mouth 1 Levoxyl) 50 00 (one) time MCG tablet each day. levothyroxi 2020-0 Yes 1{tbl} QD Take 1 [facility] (Synthroid, 00:00: mouth 1 Levoxyl) 50 00 (one) time MCG tablet each day. levothyroxi 2020-0 Yes 1{tbl} QD Take 1 [facility] (Synthroid, 00:00: mouth 1 Levoxyl) 50 00 (one) time MCG tablet each day. levothyroxi 2020-0 Yes 1{tbl} QD Take 1 [facility] (Synthroid, 00:00: mouth 1 Levoxyl) 50 00 (one) time MCG tablet each day. levothyroxi 2020-0 Yes 1{tbl} QD Take 1 [facility] (Synthroid, 00:00: mouth 1 Levoxyl) 50 00 (one) time MCG tablet each day. levothyroxi 2020-0 Yes 1{tbl} QD Take 1 [facility] (Synthroid, 00:00: mouth 1 Levoxyl) 50 00 (one) time MCG tablet each day. levothyroxi 2020-0 Yes 1{tbl} QD Take 1 [facility] (Synthroid, 00:00: mouth 1 Levoxyl) 50 00 (one) time MCG tablet each day. metFORMIN 2020-0 Yes 500mg Q12H Take 500 [facility] 6-15 [facility] (Glucophage 00:00: mouth -XR) 500 MG 00 every 12 24 hr (twelve) tablet hours. levothyroxi 2020-0 Yes 1{tbl} QD Take 1 [facility] (Synthroid, 00:00: mouth 1 Levoxyl) 50 00 (one) time MCG tablet each day. levothyroxi 2020-0 Yes 1{tbl} QD Take 1 [facility] (Synthroid, 00:00: mouth 1 Levoxyl) 50 00 (one) time MCG tablet each day. levothyroxi 2020-0 Yes 1{tbl} QD Take 1 [facility] (Synthroid, 00:00: mouth 1 Levoxyl) 50 00 (one) time MCG tablet each day. levothyroxi 2020-0 Yes 1{tbl} QD Take 1 [facility] (Synthroid, 00:00: mouth 1 Levoxyl) 50 00 (one) time MCG tablet each day. levothyroxi 2020-0 Yes 1{tbl} QD Take 1 [facility] (Synthroid, 00:00: mouth 1 Levoxyl) 50 00 (one) time MCG tablet each day. metFORMIN 2020-0 2021- No 500mg Q12H Take 500 [facility] 6-15 10-27 mg [facility] (Glucophage 00:00: 00:00 mouth -XR) 500 MG 00 :00 every 12 24 hr (twelve) tablet hours. Immunizations Ordered Immunization Filled Immunization Date Status Commen ts Source Name Name Hep B, adult 2019-02-05 Completed [facility] 00:00:00 Hep B, adult 2019-02-05 [facility] 00:00:00 Hep B, adult 2019-02-05 [facility]pleted [facility] 00:00:00 Hep B, adult 2019-02-05 [facility]pleted [facility] 00:00:00 Hep B, adult 2019-02-05 [facility]pleted [facility] 00:00:00 Hep B, adult 2019-02-05 [facility]pleted [facility] 00:00:00 Hep B, adult 2019-02-05 [facility]pleted [facility] 00:00:00 Hep B, adult 2019-02-05 [facility]pleted [facility] 00:00:00 Hep B, adult 2019-02-05 [facility]pleted [facility] 00:00:00 Hep B, adult 2019-02-05 [facility]pleted [facility] 00:00:00 Hep B, adult 2019-02-05 [facility]pleted [facility] 00:00:00 Hep B, adult 2019-02-05 [facility]pleted [facility] 00:00:00 Hep B, adult 2019-02-05 [facility]pleted [facility] 00:00:00 Hep B, adult 2019-02-05 [facility]pleted [facility] 00:00:00 Hep B, adult 2019-02-05 [facility]pleted [facility] 00:00:00 Hep B, adult 2019-02-05 [facility]pleted [facility] 00:00:00 Hep B, adult 2019-02-05 [facility]pleted [facility] 00:00:00 Hep B, adult 2019-02-05 [facility]pleted [facility] 00:00:00 Hep B, adult 2019-02-05 [facility]pleted [facility] 00:00:00 Hep B, adult 2019-02-05 [facility]pleted [facility] 00:00:00 Hep B, adult 2019-02-05 [facility]pleted [facility] 00:00:00 Hep B, adult 2019-02-05 [facility]pleted [facility] 00:00:00 Hep B, adult 2019-02-05 [facility]pleted [facility] 00:00:00 Hep B, adult 2019-02-05 [facility]pleted [facility] 00:00:00 Hep B, adult 2019-02-05 [facility]pleted [facility] 00:00:00 Hep B, adult 2019-02-05 [facility]pleted [facility] 00:00:00 Hep B, adult 2019-02-05 [facility]pleted [facility] 00:00:00 Hep B, adult 2018-08-31 Completed [facility] 00:00:00 Hep B, adult 2018-08-31 [facility]pleted [facility] 00:00:00 Hep B, adult 2018-08-31 [facility]pleted [facility] 00:00:00 Hep B, adult 2018-08-31 [facility]pleted [facility] 00:00:00 Hep B, adult 2018-08-31 [facility]pleted [facility] 00:00:00 Hep B, adult 2018-08-31 [facility]pleted [facility] 00:00:00 Hep B, adult 2018-08-31 [facility]pleted [facility] 00:00:00 Hep B, adult 2018-08-31 [facility]pleted [facility] 00:00:00 Hep B, adult 2018-08-31 [facility]pleted [facility] 00:00:00 Hep B, adult 2018-08-31 [facility]pleted [facility] 00:00:00 Hep B, adult 2018-08-31 [facility]pleted [facility] 00:00:00 Hep B, adult 2018-08-31 [facility]pleted [facility] 00:00:00 Hep B, adult 2018-08-31 [facility]pleted [facility] 00:00:00 Hep B, adult 2018-08-31 [facility]pleted [facility] 00:00:00 Hep B, adult 2018-08-31 [facility]pleted [facility] 00:00:00 Hep B, adult 2018-08-31 [facility]pleted [facility] 00:00:00 Hep B, adult 2018-08-31 [facility]pleted [facility] 00:00:00 Hep B, adult 2018-08-31 [facility]pleted [facility] 00:00:00 Hep B, adult 2018-08-31 Completed [facility] 00:00:00 Hep B, adult 2018-08-31 Completed [facility] 00:00:00 Hep B, adult 2018-08-31 Completed [facility] 00:00:00 Hep B, adult 2018-08-31 Completed [facility] 00:00:00 Hep B, adult 2018-08-31 Completed [facility] 00:00:00 Hep B, adult 2018-08-31 [facility]pleted [facility] 00:00:00 Hep B, adult 2018-08-31 Completed [facility] 00:00:00 Hep B, adult 2018-08-31 [facility]pleted [facility] 00:00:00 Hep B, adult 2018-08-31 [facility]pleted [facility] 00:00:00 Tdap 2018-05-29 Completed [facility] 00:00:00 Pneumococcal 2018-05-29 Completed [facility] Polysaccharide PPV23 00:00:00 Hep B, adult 2018-05-29 Completed [facility] 00:00:00 Tdap 2018-05-29 Completed [facility] 00:00:00 Pneumococcal 2018-05-29 Completed [facility] Polysaccharide PPV23 00:00:00 Hep B, adult 2018-05-29 Completed [facility] 00:00:00 Tdap 2018-05-29 Completed [facility] 00:00:00 Pneumococcal 2018-05-29 Completed [facility] Polysaccharide PPV23 00:00:00 Hep B, adult 2018-05-29 Completed [facility] 00:00:00 Tdap 2018-05-29 Completed [facility] 00:00:00 Pneumococcal 2018-05-29 Completed [facility] Polysaccharide PPV23 00:00:00 Hep B, adult 2018-05-29 Completed [facility] 00:00:00 Pneumococcal 2018-05-29 Completed [facility] Polysaccharide PPV23 00:00:00 Hep B, adult 2018-05-29 Completed [facility] 00:00:00 Tdap 2018-05-29 Completed [facility] 00:00:00 Pneumococcal 2018-05-29 Completed [facility] Polysaccharide PPV23 00:00:00 Hep B, adult 2018-05-29 Completed [facility] 00:00:00 Tdap 2018-05-29 Completed [facility] 00:00:00 Pneumococcal 2018-05-29 Completed [facility] Polysaccharide PPV23 00:00:00 Hep B, adult 2018-05-29 Completed [facility] 00:00:00 Tdap 2018-05-29 Completed [facility] 00:00:00 Pneumococcal 2018-05-29 Completed [facility] Polysaccharide PPV23 00:00:00 Hep B, adult 2018-05-29 Completed [facility] 00:00:00 Tdap 2018-05-29 Completed [facility] 00:00:00 Pneumococcal 2018-05-29 Completed [facility] Polysaccharide PPV23 00:00:00 Hep B, adult 2018-05-29 [facility]pleted [facility] 00:00:00 Tdap 2018-05-29 Completed [facility] 00:00:00 Pneumococcal 2018-05-29 Completed [facility] Polysaccharide PPV23 00:00:00 Hep B, adult 2018-05-29 Completed [facility] 00:00:00 Tdap 2018-05-29 Completed [facility] 00:00:00 Pneumococcal 2018-05-29 Completed [facility] Polysaccharide PPV23 00:00:00 Hep B, adult 2018-05-29 Completed [facility] 00:00:00 Tdap 2018-05-29 Completed [facility] 00:00:00 Pneumococcal 2018-05-29 Completed [facility] Polysaccharide PPV23 00:00:00 Hep B, adult 2018-05-29 Completed [facility] 00:00:00 Tdap 2018-05-29 Completed [facility] 00:00:00 Pneumococcal 2018-05-29 Completed [facility] Polysaccharide PPV23 00:00:00 Hep B, adult 2018-05-29 Completed [facility] 00:00:00 Tdap 2018-05-29 Completed [facility] 00:00:00 Pneumococcal 2018-05-29 Completed [facility] Polysaccharide PPV23 00:00:00 Hep B, adult 2018-05-29 Completed [facility] 00:00:00 Tdap 2018-05-29 [facility]pleted [facility] 00:00:00 Pneumococcal 2018-05-29 Completed [facility] Polysaccharide PPV23 00:00:00 Hep B, adult 2018-05-29 Completed [facility] 00:00:00 Tdap 2018-05-29 [facility]pleted [facility] 00:00:00 Pneumococcal 2018-05-29 Completed [facility] Polysaccharide PPV23 00:00:00 Hep B, adult 2018-05-29 Completed [facility] 00:00:00 Tdap 2018-05-29 Completed [facility] 00:00:00 Pneumococcal 2018-05-29 Completed [facility] Polysaccharide PPV23 00:00:00 Hep B, adult 2018-05-29 Completed [facility] 00:00:00 Tdap 2018-05-29 Completed [facility] 00:00:00 Pneumococcal 2018-05-29 Completed [facility] Polysaccharide PPV23 00:00:00 Hep B, adult 2018-05-29 Completed [facility] 00:00:00 Tdap 2018-05-29 [facility]pleted [facility] 00:00:00 Pneumococcal 2018-05-29 Completed [facility] Polysaccharide PPV23 00:00:00 Hep B, adult 2018-05-29 Completed [facility] 00:00:00 Tdap 2018-05-29 [facility]pleted [facility] 00:00:00 Pneumococcal 2018-05-29 Completed [facility] Polysaccharide PPV23 00:00:00 Hep B, adult 2018-05-29 Completed [facility] 00:00:00 Tdap 2018-05-29 Completed [facility] 00:00:00 Pneumococcal 2018-05-29 Completed [facility] Polysaccharide PPV23 00:00:00 Hep B, adult 2018-05-29 [facility]pleted [facility] 00:00:00 Tdap 2018-05-29 [facility]pleted [facility] 00:00:00 Pneumococcal 2018-05-29 Completed [facility] Polysaccharide PPV23 00:00:00 Hep B, adult 2018-05-29 Completed [facility] 00:00:00 Tdap 2018-05-29 Completed [facility] 00:00:00 Pneumococcal 2018-05-29 Completed [facility] Polysaccharide PPV23 00:00:00 Hep B, adult 2018-05-29 Completed [facility] 00:00:00 Tdap 2018-05-29 Completed [facility] 00:00:00 Pneumococcal 2018-05-29 Completed [facility] Polysaccharide PPV23 00:00:00 Hep B, adult 2018-05-29 Completed [facility] 00:00:00 Tdap 2018-05-29 Completed [facility] 00:00:00 Pneumococcal 2018-05-29 Completed [facility] Polysaccharide PPV23 00:00:00 Hep B, adult 2018-05-29 Completed [facility] 00:00:00 Tdap 2018-05-29 Completed [facility] 00:00:00 Pneumococcal 2018-05-29 Completed [facility] Polysaccharide PPV23 00:00:00 Hep B, adult 2018-05-29 Completed [facility] 00:00:00 Tdap 2018-05-29 Completed [facility] 00:00:00 Pneumococcal 2018-05-29 Completed [facility] Polysaccharide PPV23 00:00:00 Hep B, adult 2018-05-29 Completed [facility] 00:00:00 Tdap 2018-05-29 Completed [facility] 00:00:00 Vital Signs Vital Name Observation Time Observation Value Comments Source Systolic blood 2021-11-05 13:53:00 107 mm[Hg] [facility] Diastolic blood 2021-11-05 13:53:00 72 mm[Hg] [facility] Heart rate 2021-11-05 13:53:00 80 /min [facility] temperature 2021-11-05 13:53:00 [facility]56 [facility] Body height 2021-11-05 13:53:00 162.6 cm [facility] weight 2021-11-05 13:53:00 92[facility]443 [facility] 2021-11-05 13:53:00 34.98 kg[facility]m2 [facility] Systolic blood 2021-08-06 14:53:00 111 mm[Hg] [facility] Diastolic blood 2021-08-06 14:53:00 70 mm[Hg] [facility] Heart rate 2021-08-06 14:53:00 87 /min [facility] 2021-08-06 14:53:00 36.5 [facility] height 2021-08-06 14:53:00 162.6 cm [facility] weight 2021-08-06 14:53:00 97.07 [facility] BMI 2021-08-06 14:53:00 36.73 kg[facility]m2 [facility] Systolic blood 2021-06-11 14:39:00 129 mm[Hg] [facility] Diastolic blood 2021-06-11 14:39:00 77 mm[Hg] [facility] Heart rate 2021-06-11 14:39:00 73 /min [facility] temperature 2021-06-11 14:39:00 36.67 [facility] height 2021-06-11 14:39:00 162.6 cm [facility] weight 2021-06-11 14:39:00 107[facility]956 [facility] 2021-06-11 14:39:00 40.85 kg/m2 [facility] Systolic blood 2021-05-07 15:40:00 100 mm[Hg] [facility] Diastolic blood 2021-05-07 15:40:00 68 mm[Hg] [facility] Heart rate 2021-05-07 15:40:00 89 /min [facility] temperature 2021-05-07 15:40:00 36.61 [facility] height 2021-05-07 15:40:00 162.6 cm [facility] weight 2021-05-07 15:40:00 112.764 [facility] 2021-05-07 15:40:00 42.67 kg/m2 [facility] Systolic blood 2021-04-18 14:48:00 124 mm[Hg] [facility] Diastolic blood 2021-04-18 14:48:00 76 mm[Hg] [facility] Heart rate 2021-04-18 14:48:00 87 /min [facility] temperature 2021-04-18 14:48:00 36.61 [facility] Body height 2021-04-18 14:48:00 162.6 cm [facility] weight 2021-04-18 14:48:00 123.016 [facility] 2021-04-18 14:48:00 46.55 kg/m2 [facility] height 2021-02-27 16:16:00 162.6 cm [facility] weight 2021-02-27 16:16:00 121.201 kg [facility] 2021-02-27 16:16:00 45.86 kg/m2 [facility] height 2021-02-15 13:26:00 162.6 cm [facility] weight 2021-02-15 13:26:00 122.471 [facility] 2021-02-15 13:26:00 46.35 kg/m2 [facility] height 2021-02-14 13:13:00 162.6 cm [facility] weight 2021-02-14 13:13:00 121.836 kg [facility] 2021-02-14 13:13:00 46.11 kg/m2 [facility] height 2021-02-09 13:19:00 162.6 cm [facility] weight 2021-02-09 13:19:00 122.471 [facility] 2021-02-09 13:19:00 46.35 kg/m2 [facility] height 2021-01-29 16:58:00 162.6 cm [facility] weight 2021-01-29 16:58:00 124.512 [facility] 2021-01-29 16:58:00 47.12 kg/m2 [facility] height 2021-01-24 13:06:00 162.6 cm [facility] weight 2021-01-24 13:06:00 122.743 kg [facility] 2021-01-24 13:06:00 46.45 kg/m2 [facility] height 2021-01-18 12:52:00 162.6 cm [facility] weight 2021-01-18 12:52:00 125.646 [facility] 2021-01-18 12:52:00 47.55 kg/m2 [facility] height 2021-01-05 17:18:00 162.6 cm [facility] Body weight 2021-01-05 17:18:00 126.281 [facility] 2021-01-05 17:18:00 47.79 kg/m2 [facility] Systolic blood 2020-12-26 13:43:00 107 mm[Hg] [facility] Diastolic blood 2020-12-26 13:43:00 73 mm[Hg] [facility] Heart rate 2020-12-26 13:43:00 79 /min [facility] temperature 2020-12-26 13:43:00 36.39 [facility] Respiratory rate 2020-12-26 13:43:00 16 /min [facility] Body height 2020-12-26 13:43:00 160 [facility] weight 2020-12-26 13:43:00 127.733 [facility] BMI 2020-12-26 13:43:00 49.88 kg/m2 [facility] Body height 2020-12-26 12:53:00 162.6 cm [facility] Body weight 2020-12-26 12:53:00 127.642 [facility] BMI 2020-12-26 12:53:00 48.30 kg/m2 [facility] height 2020-12-06 18:50:00 162.6 cm [facility] weight 2020-12-06 18:50:00 127.37 kg [facility] BMI 2020-12-06 18:50:00 48.20 kg/m2 [facility] Body height 2020-11-29 13:52:00 162.6 cm [facility] Body weight 2020-11-29 13:52:00 129.457 kg [facility] BMI 2020-11-29 13:52:00 48.99 kg/m2 [facility] Body height 2020-11-21 14:08:00 162.6 cm [facility] Body weight 2020-11-21 14:08:00 128.731 [facility] BMI 2020-11-21 14:08:00 48.71 kg/m2 [facility] Systolic blood 2020-11-06 17:59:00 137 mm[Hg] [facility] Diastolic blood 2020-11-06 17:59:00 84 mm[Hg] [facility] Heart rate 2020-11-06 17:59:00 99 /min [facility] Body temperature 2020-11-06 17:59:00 36.5 [facility]essenia [facility] height 2020-11-06 17:59:00 162.6 cm [facility] weight 2020-11-06 17:59:00 130.182 [facility] BMI 2020-11-06 17:59:00 49.26 kg/m2 [facility] Temperature Oral (F) 2021-04-29 21:43:00 98.7 F [facility] Heart Rate 2021-04-29 21:43:00 [facility] Respitory Rate 2021-04-29 21:43:00 [facility] Systolic (mm Hg) 2021-04-29 21:43:00 Erich rial [facility] Diastolic (mm Hg) 2021-04-29 21:43:00 Mem o[facility] Temperature Oral (F) 2021-04-29 18:07:00 98.8 F [facility] Heart Rate 2021-04-29 18:07:00 [facility] Respitory Rate 2021-04-29 18:07:00 [facility] Systolic (mm Hg) 2021-04-29 18:07:00 [facility] [place] Diastolic (mm Hg) 2021-04-29 18:07:00 [facility] [place] Temperature Oral (F) 2021-04-29 13:33:00 98.8 F [facility] Heart Rate 2021-04-29 13:33:00 [facility] Respitory Rate 2021-04-29 13:33:00 [facility] [place] Systolic (mm Hg) 2021-04-29 13:33:00 [facility] [place] Diastolic (mm Hg) 2021-04-29 13:33:00 Mem o[facility] Height 2021-04-28 02:04:00 162.56 cm [facility] Weight 2021-04-28 02:04:00 [facility] BMI Calculated 2021-04-28 02:04:00 Mem[facility] Height 2021-04-27 13:35:00 162.56 cm [facility] Weight 2021-04-27 13:35:00 [facility] BMI Calculated 2021-04-27 13:35:00 [facility] Height 2021-04-25 14:43:00 162.56 cm [facility] Weight 2021-04-25 14:43:00 [facility] BMI Calculated 2021-04-25 14:43:00 [facility] Procedures Procedure Date / Time Performed Performing Clinician [facility] danny Laparoscopy, surgical, 2021-04-27 19:37:00 Memor ial Ralph gastric restrictive procedure; longitudinal gastrectomy (ie, sleeve gastrectomy) Esophagogastroduodenoscop 2021-04-27 19:37:00 Me morial Ralph y, flexible, transoral; diagnostic, including collection of specimen(s) by brushing or washing, when performed (separate procedure) SURGICAL PATHOLOGY 2021-04-27 [facility]:30[facility] 2021-04-27 19:30:00 [facility] Foot joint [facility] H ermann EGD [facility] [place] (esophagogastroduodenosco py) gastric outlet reduction section [facility] Cay[place] n [facility] En[facility] Start End Encounter Admission Attending Care Care Encounter Source Date/Time Date/Time Type Type Clinicians Facility Department ID 2022-07-05 Outpatient [facility] [id number] [place] 08:05:52 [id number] [facility] 2022-05-06 Outpatient [facility] [id number] [place] 10:28:13 [id number] [facility] 2021-05-07 Outpatient TERRIE [facility] [id number] [place] 10:21:23 [facility] 2021-01-18 Outpatient TANCHICO, [facility] [id number] [place] 08:09:52 [facility] 2021-01-08 Outpatient TANCHICO, [facility] [id number] [place] 09:19:23 [facility] 2020-12-06 Outpatient TANCHICO, [facility] [id number] [place] 14:03:26 [facility] 2022-05-06 2022-05-06 Outpatient HOLIHAN, [facility] [id number] [place] 10:45:00 12:02:24 [facility] 2021-11-05 2021-11-05 Office Holihlina, UTP 1.2.840.114 [id number] [place] 09:00:00 09:36:03 Visit [facility]ce [id number] [facility] 9.2.7.2.686 BUILDING [id number] 1 2021-08-06 2021-08-06 Office Yazminjasonlina, UTP 1.2.840.114 [id number] [place] 09:00:00 09:57:16 Visit Marce PADILLA [id number] H ealth MEDICAL 9.2.7.2.686 BUILDING [id number] 1 2021-06-11 2021-06-11 Office YAZMINJASONLINA, UTP 1.2.840.114 [id number] [place] 08:45:00 09:00:00 Visit MARCE PADILLA [id number] H ealth MEDICAL 9.2.7.2.686 BUILDING [id number] 1 2021-05-07 2021-05-07 Office Yazminjasonlina, UTP 1.2.840.114 [id number] [place] 09:32:54 10:21:23 Visit Marce PADILLA [id number] H ealt MEDICAL 9.2.7.2.686 BUILDING [id number] 1 2021-04-27 2021-04-30 Inpatient [facility] [id number] [facility] 12:40:00 00:25:00 [facility] 00 l [facility] 2021-04-27 2021-04-29 [facility] [address] [facility] 07:40:00 18:25:00 MARCE 2021-04-27 2021-04-29 Outpatient Terrie, [facility] [id number] 07:40:00 18:25:00 Marce Huertas 2021-04-27 2021-04-29 [facility] [id number] 07:40:00 18:25:00 Marce Huertas 2021-04-29 2021-04-29 EXT MHH IP System, EXT MSRDP 1.2.840.114 1 [id number] [place] 00:00:00 00:00:00 Provider LOCATION [id number] Health Not In 9.2.7.2.686 [id number] 0 2021-04-29 2021-04-29 EXT MHH IP System, EXT MSRDP 1.2.840.114 1 [id number] [place] 00:00:00 00:00:00 Provider LOCATION [id number] Health Not In 9.2.7.2.686 [id number] 2021-04-27 2021-04-27 EXT MHH OP HOLAN, EXT MSRDP 1.2.840.114 [id number] [place] 12:37:59 15:37:59 MARCE LOCATION 350.1.13.58 H ealth 9.2.7.2.686 [id number] 1 2021-04-27 2021-04-27 EXT MHH OP Holan, EXT MSRDP 1.2.840.114 [id number] [place] 12:37:59 15:37:59 Marce LOCATION 350.1.13.58 H ealth 9.2.7.2.686 [id number] 1 2021-04-27 2021-04-27 EXT MHH IP Glenesk, EXT MSRDP 1.2.840.114 [id number] [place] 00:00:00 00:00:00 All LOCATION 350.1.13.58 H ealth 9.2.7.2.686 [id number] 2021-04-27 2021-04-27 EXT MHH IP Glenesk, EXT MSRDP 1.2.840.114 [id number] [place] 00:00:00 00:00:00 All LOCATION 350.1.13.58 H ealth 9.2.7.2.686 [id number] 0 2021-04-23 2021-04-24 Outpatient nullFlavo MH Urgent [id number] Memoria 15:30:00 04:59:59 r Care 00 l Eufemia gambino 2021-04-23 2021-04-23 Outpatient VISIT, [facility] [id number] 10:30:00 23:59:59 NURSE UCFW 00 2021-04-23 2021-04-23 Outpatient MHIE MHIE [id number] Memoria 10:30:00 10:30:00 00 l Ralph 2021-04-18 2021-04-18 Consult HARSHAL Falcon 1.2.840.114 [id number] [place] 09:36:42 10:32:13 Marce PADILLA 350.1.13.58 H ealth MEDICAL 9.2.7.2.686 [facility] [id number] 1 2021-04-13 2021-04-13 EXT MHH OP EXT MSRDP 1.2.840.114 1 [id number] [place] 00:00:00 00:00:00 LOCATION 350.1.13.58 H ealth 9.2.7.2.686 [id number] 2021-04-13 2021-04-13 EXT MHH OP EXT MSRDP 1.2.840.114 1 [id number] [place] 00:00:00 00:00:00 LOCATION 350.1.13.58 H ealth 9.2.7.2.686 [id number] 2021-03-29 2021-03-29 Telephone HARSHAL Falcon 1.2.840.114 [id number] [place] 00:00:00 00:00:00 Marce PADILLA 350.1.13.58 H ealth MEDICAL 9.2.7.2.686 [facility] [id number] 1 2021-03-08 2021-03-08 HARSHAL Kraft GERARD 1.2.344.222 [id number] [place] 00:00:00 00:00:00 Alicia JACKSON 350.1.13.58 He alth MULTI 9.2.7.2.686 [facility] [id number] CLINIC 8 2021-02-27 2021-02-27 Nutrition Tanchico, UTP 1.2.840.114 12 [id number] [place] 10:42:56 11:40:28 Juana BELLAIRE 350.1.13.58 [facility] MEDICAL 9.2.7.2.686 [facility] [id number] 1 2021-02-15 2021-02-15 Nutrition Tanchico, UTP 1.2.840.114 12 [id number] [place] 08:19:59 08:41:25 Juana BELLAIRE 350.1.13.58 H ealt MEDICAL 9.2.7.2.686 [facility] [id number] 1 2021-02-14 2021-02-14 Nutrition Tanchico, UTP 1.2.840.114 12 [id number] [place] 08:12:46 08:16:06 Juana BELLAIRE 350.1.13.58 [facility] MEDICAL 9.2.7.2.686 [facility] [id number] 1 2021-02-09 2021-02-09 Nutrition Tanchico, UTP [facility] 1.2.840.114 12 [id number] [place] 08:12:08 08:18:46 [place] SE MED 350.1.13.58 [address] 9.2.7.2.686 [id number] 4 2021-01-29 2021-01-29 Nutrition Tanchico, UTP [facility] 1.2.840.114 12 [id number] [place] 09:52:30 10:19:18 Juana SUGAR 350.1.13.58 He alth LAND MED 9.2.7.2.686 [address] [id number] AND 4 WOMENS 2021-01-24 2021-01-24 Nutrition Tanchico, UTP 1.2.840.114 12 [id number] [place] 08:05:10 08:10:47 Juana BELLAIRE 350.1.13.58 H ealt MEDICAL 9.2.7.2.686 [facility] [id number] 1 2021-01-18 2021-01-18 Nutrition Tanchico, UTP 1.2.840.114 12 [id number] [place] 07:49:22 08:04:22 Juana BELLAIRE 350.1.13.58 H ealth MEDICAL 9.2.7.2.686 [facility] [id number] 1 2021-01-05 2021-01-05 Nutrition Natalie, UTP [facility] 1.2.840.114 12 [id number] [place] 10:19:55 10:50:41 [place] SE MED 350.1.13.58 He alth [address] 9.2.7.2.686 [id number] 4 2020-12-26 2020-12-26 Office Loghin, UTP 1.2.840.114 [id number] [place] 08:16:06 08:56:06 Visit Erik TAPIAAIRE 350.1.13.58 H ealt MEDICAL 9.2.7.2.686 [facility] [id number] 3 2020-12-26 2020-12-26 Nutrition Natalie, UTP 1.2.840.114 12 [id number] [place] 07:51:49 08:12:27 Juana BELLAIRE 350.1.13.58 H ealth MEDICAL 9.2.7.2.686 [facility] [id number] 1 2020-12-06 2020-12-06 Nutrition Natalie, UTP 1.2.840.114 12 [id number] [place] 13:46:20 14:25:46 Juana BELLAIRE 350.1.13.58 H ealth MEDICAL 9.2.7.2.686 [facility] [id number] 1 2020-11-29 2020-11-29 Nutrition Natalie, UTP 1.2.840.114 12 [id number] [place] 08:51:37 09:08:29 Juana BELLAIRE 350.1.13.58 H ealth MEDICAL 9.2.7.2.686 [facility] [id number] 1 2020-11-21 2020-11-21 Nutrition Natalie, UTP 1.2.840.114 12 [id number] [place] 08:47:49 09:24:50 Juana BELLAIRE 350.1.13.58 H ealth MEDICAL 9.2.7.2.686 [facility] [id number] 1 2020-11-142020-11-14 Telephone HARSHAL Falcon [facility] 1.2.840.114 [id number] [place] 00:00:00 00:00:00 Marce WILLIS 350.1.13.58 He alth [address] 9.2.7.2.686 [id number] 4 2020-11-06 2020-11-06 Office HARSHAL Falcon 1.2.840.114 [id number] [place] 12:56:42 14:23:10 Visit Marce PADILLA 350.1.13.58 H [facility] 9.2.7.2.686 [facility] [id number] 1 Results Test Description Test Time Test Comments Results Result Comments Source CHEM PANEL 2021-04-29 09:49:00 Test Item Value Reference Range Interpretation Comme nts Glucose Lvl (test code = Glucose Lvl) 115 70-99 [facility]2021-11-07 09:49:00 Test Item Value Reference Range Interpretation Comments BUN (test code = BUN) 8 7-22 [facility]2021-11-07 09:49:00 Test Item Value Reference Range Interpretation Comments Creatinine Lvl (test code = Creatinine 0.64 0.50-1.40 Lvl) [facility]Un[facility] ConceptsCANNON MEMORIAL HOSPITALKFJXR0247-50-84 09:49:00 Test Item Value Reference Range Interpretation Comments Sodium Lvl (test code = Sodium Lvl) 138 135-145 [facility]2021-11-07 09:49:00 Test Item Value Reference Range Interpretation Comments Potassium Lvl (test code = Potassium 4.0 3.5-5.1 Lvl) [facility]2021-11-07 09:49:00 Test Item Value Reference Range Interpretation Comments Chloride Lvl (test code = Chloride Lvl) 103 95-109 [facility]2021-11-07 09:49:00 Test Item Value Reference Range Interpretation Comments CO2 (test code = CO2) 26 24-32 [facility]2021-11-07 09:49:00 Test Item Value Reference Range Interpretation Comments Calcium Lvl (test code = Calcium Lvl) 9.2 8.5-10.5 [facility] VZBAO4312-43-19 09:49:00 Test Item Value Reference Range Interpretation Comments AGAP (test code = AGAP) 13.0 10.0-20.0 [facility]2021-11-07 09:49:00 Test Item Value Reference Range Interpretation Comments eGFR (test code = eGFR) 114 [facility]ZE[facility]20-47-01 09:49:00 Test Item Value Reference Range Interpretation Comments WBC (test code = WBC) 9.0 3.7-10.4 [facility] HospitalKvlbuimIHXPYQELZI9815-32-14 09:49:00 Test Item Value Reference Range Interpretation Comments RBC (test code = RBC) 4.32 4.20-5.40 [facility] HospitalXdohveoYVXDZQJDTF1833-21-26 09:49:00 Test Item Value Reference Range Interpretation Comments Hgb (test code = Hgb) 12.5 12.0-16.0 [place] 763621-11-07 09:49:00 Test Item Value Reference Range Interpretation Comments Hct (test code = Hct) 36.2 36.0-48.0 [facility] HospitalXmyhhpqTBILZUPOTE8064-00-97 09:49:00 Test Item Value Reference Range Interpretation Comments MCV (test code = MCV) 83.7 80.0-98.0 [facility] HospitalHdlwketOJVPUYHNBW9277-22-09 09:49:00 Test Item Value Reference Range Interpretation Comments MCH (test code = MCH) 28.9 pg 27.0-31.0 [facility] HospitalIphsyanPGCLJIMZNX5133-11-42 09:49:00 Test Item Value Reference Range Interpretation Comments MCHC (test code = MCHC) 34.5 32.0-36.0 [facility] HospitalGhsjfzvSLYMHKNAVA7341-40-56 09:49:00 Test Item Value Reference Range Interpretation Comments RDW (test code = RDW) 15.3 11.5-14.5 [facility] HospitalGvfixiyEAQCRRDRXE3295-08-52 09:49:00 Test Item Value Reference Range Interpretation Comments Platelet (test code = Platelet) 273 133-450 [facility] HospitalMtwskryYFOTLERRNG0817-65-52 09:49:00 Test Item Value Reference Range Interpretation Comments MPV (test code = MPV) 8.7 7.4-10.4 [place] 72896021-11-06 08:43:00 Test Item Value Reference Range Interpretation Comments S Preg (test code = S Negative *NA*(04/28/21 Preg) 3:43 AM) [facility]2021-11-06 08:43:00 Test Item Value Reference Range Interpretation Comments Glucose Lvl (test code = Glucose Lvl) 143 70-99 [facility]2021-11-06 08:43:00 Test Item Value Reference Range Interpretation Comments BUN (test code = BUN) 12 - [facility]2021-11-06 08:43:00 Test Item Value Reference Range Interpretation Comments Creatinine Lvl (test code = Creatinine 0.63 0.50-1.40 Lvl) [facility]2021-11-06 08:43:00 Test Item Value Reference Range Interpretation Comments Sodium Lvl (test code = Sodium Lvl) 133 135-145 [place] 443111-11-06 08:43:00 Test Item Value Reference Range Interpretation Comments Potassium Lvl (test code = Potassium 4.5 3.5-5.1 Lvl) [facility]2021-11-06 08:43:00 Test Item Value Reference Range Interpretation Comments Chloride Lvl (test code = Chloride Lvl) 104 95-109 [facility]2021-11-06 08:43:00 Test Item Value Reference Range Interpretation Comments CO2 (test code = CO2) 23 24-32 [facility]2021-11-06 08:43:00 Test Item Value Reference Range Interpretation Comments Calcium Lvl (test code = Calcium Lvl) 8.9 8.5-10.5 [facility]2021-11-06 08:43:00 Test Item Value Reference Range Interpretation Comments AGAP (test code = AGAP) 10.5 10.0-20.0 [facility]2021-11-06 08:43:00 Test Item Value Reference Range Interpretation Comments eGFR (test code = eGFR) 115 [facility]2021-11-05 21:16:00 Test Item Value Reference Range Interpretation Comments Glucose Lvl (test code = Glucose Lvl) 183 70-99 [facility]2021-11-05 21:16:00 Test Item Value Reference Range Interpretation Comments BUN (test code = BUN) 13 - [facility]2021-11-05 21:16:00 Test Item Value Reference Range Interpretation Comments Creatinine Lvl (test code = Creatinine 0.63 0.50-1.40 Lvl) [place] 443111-11-05 21:16:00 Test Item Value Reference Range Interpretation Comments Sodium Lvl (test code = Sodium Lvl) 138 135-145 [place] 443111-11-05 21:16:00 Test Item Value Reference Range Interpretation Comments Potassium Lvl (test code = Potassium 3.8 3.5-5.1 Lvl) [place] 443111-11-05 21:16:00 Test Item Value Reference Range Interpretation Comments Chloride Lvl (test code = Chloride Lvl) 107 95-109 [place] 443111-11-05 21:16:00 Test Item Value Reference Range Interpretation Comments CO2 (test code = CO2) 21 24-32 [place] 443111-11-05 21:16:00 Test Item Value Reference Range Interpretation Comments Calcium Lvl (test code = Calcium Lvl) 7.8 8.5-10.5 [place] 443111-11-05 21:16:00 Test Item Value Reference Range Interpretation Comments AGAP (test code = AGAP) 13.8 10.0-20.0 [place] 443111-11-05 21:16:00 Test Item Value Reference Range Interpretation Comments eGFR (test code = eGFR) 115 [place] 763621-11-05 21:12:00 Test Item Value Reference Range Interpretation Comments WBC (test code = WBC) 9.9 3.7-10.4 [place] 763621-11-05 21:12:00 Test Item Value Reference Range Interpretation Comments RBC (test code = RBC) 4.25 4.20-5.40 [place] [address]-11-05 21:12:00 Test Item Value Reference Range Interpretation Comments Hgb (test code = Hgb) 12.3 12.0-16.[address]11-05 21:12:00 Test Item Value Reference Range Interpretation Comments Hct (test code = Hct) 35.7 36.0-48.0 [place] [address]-11-05 21:12:00 Test Item Value Reference Range Interpretation Comments MCV (test code = MCV) 84.0 80.0-98.0 [place] 763621-11-05 21:12:00 Test Item Value Reference Range Interpretation Comments MCH (test code = MCH) 28.9 pg 27.0-31.0 [facility] HospitalCcengufGCBABEDWJK8590-66-08 21:12:00 Test Item Value Reference Range Interpretation Comments MCHC (test code = MCHC) 34.4 32.0-36.0 [facility] HospitalKjdmoxhIOETAKBILV3317-04-54 21:12:00 Test Item Value Reference Range Interpretation Comments RDW (test code = RDW) 15.1 11.5-14.5 [facility] HospitalHkvljgzOUNVFOYCSU6198-27-02 21:12:00 Test Item Value Reference Range Interpretation Comments Platelet (test code = Platelet) 256 133-450 [facility] HospitalVfdufrkHLMOLUTARD0111-78-60 21:12:00 Test Item Value Reference Range Interpretation Comments MPV (test code = MPV) 8.8 7.4-10.4 [place] 763621-11-05 21:12:00 Test Item Value Reference Range Interpretation Comments Segs (test code = Segs) 88.4 45.0-75.0 [facility] HospitalAtinpseWQIPAUPFYR1389-17-39 21:12:00 Test Item Value Reference Range Interpretation Comments Lymphocytes (test code = Lymphocytes) 8.8 20.0-40.0 [facility] HospitalKlzrpwnWETLYENJBA6186-40-96 21:12:00 Test Item Value Reference Range Interpretation Comments Monocytes (test code = Monocytes) 2.3 2.0-12.0 [facility] HospitalZrqyasqKMBDJVZEGI0860-14-41 21:12:00 Test Item Value Reference Range Interpretation Comments Eosinophils (test code = 0.2 See_Comment [A utomated message] The Eosinophils) system which ge nerated this result tra nsmitted reference range : <=4.0. The reference r paz was not used to int erpret this result as normal/abnormal . [facility] HospitalHjcthboNTJERJQSZD0959-14-18 21:12:00 Test Item Value Reference Range Interpretation Comments Basophils (test code = 0.3 See_Comment [Aut omated message] The Basophils) system which ge nerated this result tra nsmitted reference range : <=1.0. The reference r paz was not used to int erpret this result as normal/abnormal . [facility] HospitalVfybgniDRHSZFMQYT8137-15-74 21:12:00 Test Item Value Reference Range Interpretation Comments Neutrophils # (test code = Neutrophils 8.8 1.5-8.1 #) [place] 763621-11-05 21:12:00 Test Item Value Reference Range Interpretation Comments Lymphocytes # (test code = Lymphocytes 0.9 1.0-5.5 #) [facility] HospitalTnrmopzAPBESYNINB1621-74-18 21:12:00 Test Item Value Reference Range Interpretation Comments Monocytes # (test code 0.2 See_Comment [Aut omated message] The = Monocytes #) system which generated this result tra nsmitted reference range : <=0.8. The reference r paz was not used to int erpret this result as normal/abnormal . [facility]2021-11-05 19:30:00 Test Item Value Reference Range Interpretation Comments Diagnosis (test code Stomach, sleeve partial = 5973754) gastrectomy: - Mild chronic gastritis. - Underlying gastric wall, no significant histologic abnormality. Specimen Source (test Partial stomach code = 4807544) Clinical Information Clinical history: (test code = 6801147) ?Morbid obesityOperative procedure: ?Robotic assisted laparoscopic sleeve gastrectomy, EGD Gross Description Received without (test code = 8278326) fixative, labeled with the patient's name, MRN, and "partial stomach", is a 21.0 x 5.0 x 2.5 cm portion of stomach with smooth molina-pink serosa and molina mucosa with usual folds. ?No masses, polyps, or ulcers are identified. ?Representatively submitted in 1A-1C (en face margin in 1A).[facility] 04/27/2021 16:11 Microscopic Microscopic examination Description (test is performed, and the code = 6756446) findings are incorporated in the diagnosis. Non Clinical 54865-HI Documentation (test code = 3494727) Teaching Physician "I have personally Statement (test code reviewed the resident's = 5343645) gross description and all specimen preparations and have personally issued this report." [facility] FTMJWVSOT7264-90-16 19:30:00 Test Item Value Reference Range Interpretation Comments Diagnosis (test code Stomach, sleeve partial = 2463532) gastrectomy: - Mild chronic gastritis. - Underlying gastric wall, no significant histologic abnormality. Specimen Source (test Partial stomach code = 2901739) Clinical Information Clinical history: (test code = 5949057) ?Morbid obesityOperative procedure: ?Robotic assisted laparoscopic sleeve gastrectomy, EGD Gross Description Received without (test code = 2414082) fixative, labeled with the patient's name, MRN, and "partial stomach", is a 21.0 x 5.0 x 2.5 cm portion of stomach with smooth molina-pink serosa and molina mucosa with usual folds. ?No masses, polyps, or ulcers are identified. ?Representatively submitted in 1A-1C (en face margin in 1A).[facility] 04/27/2021 16:11 Microscopic Microscopic examination Description (test is performed, and the code = 1912997) findings are incorporated in the diagnosis. Non Clinical 12439-SE Documentation (test code = 4486446) Teaching Physician "I have personally Statement (test code reviewed the resident's = 9674027) gross description and all specimen preparations and have personally issued this report." [facility] [id number] 15:17:00 Test Item Value Reference Range Interpretation Comments Total Protein (test code = Total 7.9 6.4-8.4 Protein) [facility] [id number] 15:17:00 Test Item Value Reference Range Interpretation Comments Albumin Lvl (test code = Albumin Lvl) 4.0 3.5-5.0 [facility] [id number] 15:17:00 Test Item Value Reference Range Interpretation Comments ALT (test code = ALT) 30 See_Comment [Auto mated message] The system which ge nerated this result transmit madeline reference range : <=65. The reference range was not used to interpr et this result as elmer l/abnormal. [facility] TVIYZ0812-38-87 15:17:00 Test Item Value Reference Range Interpretation Comments AST (test code = AST) 18 See_Comment [Auto mated message] The system which ge nerated this result transmit madeline reference range : <=37. The reference range was not used to interpr et this result as elmer l/abnormal. [facility] VZIBZ2430-82-64 15:17:00 Test Item Value Reference Range Interpretation Comments Alk Phos (test code = Alk Phos) 57 39-136 [facility] [id number] 15:17:00 Test Item Value Reference Range Interpretation Comments Bili Total (test code = Bili Total) 1.7 0.2-1.3 [facility] [id number] 15:17:00 Test Item Value Reference Range Interpretation Comments B/C Ratio (test code = B/C Ratio) 19 1 6-25 [place] 443111-11-03 15:17:00 Test Item Value Reference Range Interpretation Comments Globulin (test code = Globulin) 3.9 2.7-4.2 [place] 443111-11-03 15:17:00 Test Item Value Reference Range Interpretation Comments A/G Ratio (test code = A/G Ratio) 1.0 1 0.7-1.6 [place] [address]-11-03 15:17:00 Test Item Value Reference Range Interpretation Comments Segs (test code = Segs) 69.7 45.0-75.0 [place] [address]-11-03 15:17:00 Test Item Value Reference Range Interpretation Comments Lymphocytes (test code = Lymphocytes) 22.3 20.0-40.0 [place] [address]-11-03 15:17:00 Test Item Value Reference Range Interpretation Comments Monocytes (test code = Monocytes) 6.1 2.0-12.0 [place] 763621-11-03 15:17:00 Test Item Value Reference Range Interpretation Comments Eosinophils (test code = 1.5 See_Comment [A utomated message] The Eosinophils) system which ge nerated this result tra nsmitted reference range : <=4.0. The reference r paz was not used to int erpret this result as normal/abnormal . [place] 763621-11-03 15:17:00 Test Item Value Reference Range Interpretation Comments Basophils (test code = 0.4 See_Comment [Aut omated message] The Basophils) system which ge nerated this result tra nsmitted reference range : <=1.0. The reference r paz was not used to int erpret this result as normal/abnormal . [place] 763621-11-03 15:17:00 Test Item Value Reference Range Interpretation Comments Neutrophils # (test code = Neutrophils 4.2 1.5-8.1 #) [place] 763621-11-03 15:17:00 Test Item Value Reference Range Interpretation Comments Lymphocytes # (test code = Lymphocytes 1.4 1.0-5.5 #) [place] 763621-11-03 15:17:00 Test Item Value Reference Range Interpretation Comments Monocytes # (test code 0.4 See_Comment [Aut omated message] The = Monocytes #) system which generated this result tra nsmitted reference range : <=0.8. The reference r paz was not used to int erpret this result as normal/abnormal . [facility] 15:17:00 Test Item Value Reference Range Interpretation Comments Eosinophils # (test code 0.1 See_Comment [A utomated message] The = Eosinophils #) system whic h generated this result tra nsmitted reference range : <=0.5. The reference r paz was not used to int erpret this result as normal/abnormal . [facility]OeeermmIOXHXQQSRV6937-75-74 15:17:00 Test Item Value Reference Range Interpretation Comments WBC (test code = WBC) 6.1 3.7-10.4 [place] 763621-11-03 15:17:00 Test Item Value Reference Range Interpretation Comments RBC (test code = RBC) 4.59 4.20-5.40 [facility]YnmvjheLNOSQCKWMU7409-68-27 15:17:00 Test Item Value Reference Range Interpretation Comments Hgb (test code = Hgb) 13.1 12.0-16.0 [facility]HnsqvqoHERFQYBVJB1924-20-73 15:17:00 Test Item Value Reference Range Interpretation Comments Hct (test code = Hct) 37.9 36.0-48.0 [place] 763621-11-03 15:17:00 Test Item Value Reference Range Interpretation Comments MCV (test code = MCV) 82.5 80.0-98.0 [place] 763621-11-03 15:17:00 Test Item Value Reference Range Interpretation Comments MCH (test code = MCH) 28.6 pg 27.0-31.0 [facility]WmyuallGNBIXMOUHT9680-97-93 15:17:00 Test Item Value Reference Range Interpretation Comments MCHC (test code = MCHC) 34.6 32.0-36.0 [facility] HospitalAdibeccTMRLWXOVTB0421-69-18 15:17:00 Test Item Value Reference Range Interpretation Comments RDW (test code = RDW) 15.3 11.5-14.5 [facility] HospitalPcaqbisCIGCRCBGJK5940-30-93 15:17:00 Test Item Value Reference Range Interpretation Comments Platelet (test code = Platelet) 278 133-450 [facility] HospitalXfytgkvXISFSAVLPX6016-47-67 15:17:00 Test Item Value Reference Range Interpretation Comments MPV (test code = MPV) 9.5 7.4-10.4 [place] 763621-11-03 15:17:00 Test Item Value Reference Range Interpretation Comments PT (test code = PT) 12.9 s 12.0-14.7 [facility] HospitalHrbjuouQIVGTVAPYK7834-24-07 15:17:00 Test Item Value Reference Range Interpretation Comments INR (test code = INR) 0.98 1 0.85-1.17 [facility]AdvmbjeXCUEZBEEXY2446-74-47 15:17:00 Test Item Value Reference Range Interpretation Comments PTT (test code = PTT) 29.8 s 22.9-35.8 [place] 763621-11-03 15:17:00 Test Item Value Reference Range Interpretation Comments TEG Interp (test Thrombelastograph results code = TEG show increased values of MA. Interp) This finding is suggestive of platelet hypercoagulation. CPT:28146 [facility] HospitalFkcvemdLEDQSTVFMA6079-45-05 15:17:00 Test Item Value Reference Range Interpretation Comments R-time (test code = R-time) 5.5 min 5.0-10.0 [place] 763621-11-03 15:17:00 Test Item Value Reference Range Interpretation Comments K-time (test code = K-time) 1.4 min 1.0-3.0 [facility] HospitalMsuwnhpKCWTTSOAMO9723-42-67 15:17:00 Test Item Value Reference Range Interpretation Comments Angle (test code = Angle) 68.6 degrees 53.0-72.0 [facility] HospitalTuujsdwCTROGOMWGP6294-48-83 15:17:00 Test Item Value Reference Range Interpretation Comments Max Amp (test code = Max Amp) 73.4 mm 50.0-70.0 [facility] HospitalXylqgbwCEZOJJVPPT1707-49-42 15:17:00 Test Item Value Reference Range Interpretation Comments G-value (test code = G-value) 13.8 4.5-11.0 [facility] HospitalZcotdcyTWDTFBJVRX8647-22-87 15:17:00 Test Item Value Reference Range Interpretation Comments Ly30 (test code = 0.0 See_Comment [Automate d message] The Ly30) system which ge nerated this result transmit madeline reference range : <=7.5. The reference range was not used to interpr et this result as elmer l/abnormal. [facility] HospitalRsauktbYVLLMANYFN2691-81-84 15:17:00 Test Item Value Reference Range Interpretation Comments Coag Index (test code 2.3 1 See_Comment [Auto mated message] The = Coag Index) system which g enerated this result transmit madeline reference range : <=3.0. The reference range was not used to interpr et this result as elmer l/abnormal. [facility] HospitalHbbeuxlYVKDQVKBAC8964-12-24 15:17:00 Test Item Value Reference Range Interpretation Comments TEG Data (test code = See Note (04/25/21 10:17 TEG Data) AM) [facility]udnaqrVROSCYGAKQ8828-32-92 15:20:00 Test Item Value Reference Range Interpretation Comments Coronavirus (COVID-19) Not Detected LIANET (test code = *NA*(04/23/21 10:20 Coronavirus (COVID-19) AM) LIANET) [facility]
[2022-12-10 11:52] LABS: Absolute Lymphocytes (CBC) 1.9 K/uL (0.7-4.9); Hematocrit 39.2 % (36.0-45.0); Lymphocytes % 27.6 % (15.3-44.8); MCV 83.8 fL (80-100); MPV 8.8 fL (7.6-11.3); RBC Red Blood Cell Count 4.67 M/uL (3.86-4.86)
[2022-12-10] MEDS ORDERED: NA CHLORIDE 0.9% 1,000 ML ONE ×2 (11:53→13:09)
[2022-12-10 11:54] LABS: Calcium Oxalate Crystals- Ur Few /HPF (None Seen); Specific Gravity 1.028 (1.005-1.030); Urine Bacteria None Seen /HPF (<20); Urine Bilirubin NEGATIVE (Negative); Urine Blood 3+ (OVER) (Negative); Urine Clarity Extremely Turbid (Clear); Urine Color Yellow (Yellow); Urine Glucose NEGATIVE (Negative); Urine Mucus 3+ /HPF (None Seen); Urine Protein 1+ (Negative); Urine RBC >50 /HPF (None Seen); Urine Urobilinogen Normal (Normal)
[2022-12-10] MEDS ORDERED: CEFTRIAXONE 1000 MG/VIAL ONE (11:54)
[2022-12-10] MEDS ORDERED: MORPHINE 4 MG/ML SYR ONE (11:54)
[2022-12-10] MEDS ORDERED: FAMOTIDINE 20 MG/2 ML VIAL IV ONE (11:55)
[2022-12-10] MEDS ORDERED: ONDANSETRON 4 MG/2 ML VIAL ONE ×2 (11:55→14:37)
[2022-12-10] MEDS ORDERED: NA CHLORIDE 0.9% 50 ML ONE (11:55)
[2022-12-10] MEDS ORDERED: KETOROLAC 30 MG/ML INJ ONE (11:55)
[2022-12-10 11:56] LABS: Specific Gravity 1.028 (1.005-1.030)
[2022-12-10 12:11] LABS: Albumin 3.8 g/dL (3.4-5.0); Potassium 3.8 mEq/L (3.5-5.1); Protein, Total 7.6 g/dL (6.4-8.2)
--- NOTE | 2022-12-10 12:35 | RAD REPORT ---
EXAM DESCRIPTION: CT - Stone Protocol - 12/10/2022 12:25 pm CLINICAL HISTORY: KIDNEY STONES COMPARISON: Stone Protocol dated 08/13/2016 TECHNIQUE: Thin cut axial CT imaging of the abdomen and pelvis was performed without IV contrast. Mu ltiplanar reformats were generated and reviewed. All CT scans are performed using dose optimization technique as appropriate and may include automated exposure control or mA/KV adjustment according to patient size. FINDINGS: No suspicious findings in the lung bases. The liver, adrenal glands, and pancreas show no suspicious findings. Splenomegaly, with spleen measur ing 18.7 centimeter in long axis. Gallbladder and biliary tree are also without suspicious finding. Symmetric renal contour, without suspicious parenchymal findings within limits of noncontrast techniq ue. Right mild hydroureteronephrosis. 6 millimeter calculus along the proximal right ureter. Nonobstr ucting bilateral renal calculi elsewhere, up to 7 millimeter in greatest dimension along the left mid to lower renal pole. Sequelae of gastric bypass surgery PE No dilated bowel loops or bowel wall thickening. No free air, f ree fluid or inflammatory stranding. No hernia, mass or bulky lymphadenopathy. The urinary bladder is suboptimally distended limiting evaluation. No suspicious bony findings. IMPRESSION: Mild right hydroureteronephrosis. An obstructing 6 millimeter calculus is seen along the proximal right ureter. Other incidental findings and bilateral nonobstructing renal calculi as above.
--- NOTE | 2022-12-10 13:05 | ER ---
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 Coronavirus screen: At this time, the client does not indicate any symptoms associated with coronavirus-19. Ebola Screen: Patient negative for fever greater than or equal to 101.5 degrees Fahrenheit, and additional compatible Ebola Virus Disease symptoms Patient denies exposure to infectious person. Patient denies travel to an Ebola-affected area in the 21 days before illness onset. No symptoms or risks identified at this time. Initial Sepsis Screen: Does the patient meet any 2 criteria? No. Patient's initial sepsis screen is negative. Does the patient have a suspected source of infection? No. Patient's initial sepsis screen is negative. Risk Assessment: Do you want to hurt yourself or someone else? Patient reports no desire to harm self or others. Onset of symptoms was December 10, 2022. 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 - Social history:: Smoking status: Patient/guardian denies using tobacco. - Family history:: not pertinent. Screenin:12 [facility] ED Fall Risk Assessment (Adult) History of falling in the last 3 months, nj1 including since admission No falls in past 3 months (0 pts) Confusion or Disorientation No (0 pts) Intoxicated or Sedated No (0 pts) Impaired Gait No (0 pts) Mobility Assist Device Used No (0 pt) Altered Elimination No (0 pt) Score/Fall Risk Level 0 - 2 = Low Risk Oriented to surroundings, Maintained a safe environment, Hourly rounding (assess needs \T\ fall precautionary measures) done. Abuse screen: Denies threats or abuse. Denies injuries from another. Nutritional screening: No deficits noted. Tuberculosis screening: No symptoms or risk factors identified. Assessment: 11:29 Reassessment: pt not in lobby. iw 11:50 General: Appears in no apparent distress. uncomfortable, Behavior is calm, cooperative, nj1 appropriate for age. 11:50 Pain: Complains of pain in flank, right Pain currently is 8 out of 10 on a pain scale. nj1 Pain began 4 hours ago. Neuro: Level of Consciousness is awake, alert, obeys commands, Oriented to person, place, time, situation. Cardiovascular: Patient's skin is warm and dry. Respiratory: Airway is patent Respiratory effort is even, unlabored. : Reports pain in right flank(s). 12:33 Reassessment: Patient appears in no apparent distress at this time. Patient and/or nj1 family updated on plan of care and expected duration. Pain level reassessed. Patient is alert, oriented x 3, equal unlabored respirations, skin warm/dry/pink. Patient states feeling better. 13:08 Reassessment: Patient appears in no apparent distress at this time. Patient and/or nj1 family updated on plan of care and expected duration. Pain level reassessed. Patient is alert, oriented x 3, equal unlabored respirations, skin warm/dry/pink. Patient states feeling better. Patient states symptoms have improved. 14:10 Reassessment: Patient appears in no apparent distress at this time. Patient and/or nj1 family updated on plan of care and expected duration. Pain level reassessed. Patient is alert, oriented x 3, equal unlabored respirations, skin warm/dry/pink. Pain: Complains of pain in flank, right Pain currently is 8 out of 10 on a pain scale. Vital Signs: 11:41 Resp 16; Weight 93.44 kg; Height 5 ft. 3 in. ; Pain 7/10; iw 12:05 BP 117 / 81; Pulse 79; Resp 18; Pulse Ox 98% ; Pain 10/10; nj1 12:33 BP 114 / 69; Pulse 73; Resp 16; Pulse Ox 100% ; Pain 3/10; nj1 13:08 BP 135 / 91; Pulse 74; Resp 17; Pulse Ox 100% ; Pain 2/10; nj1 11:41 Body Mass Index 36.49 (93.44 kg, 160.02 cm) iw 11:41 Pain Scale: Adult iw 12:05 Pain Scale: Adult nj1 12:33 Pain Scale: Adult nj1 13:08 Pain Scale: Adult nj1 ED Course: 11:19 Patient arrived in ED. cc5 11:30 Heriberto Ponce MD is Attending Physician. elizabeth 11:40 Flor Miranda, KERRIE is Primary Nurse. nj1 11:42 Triage completed. iw 11:43 Arm band placed on. iw 12:05 Patient has correct armband on for positive identification. Bed in low position. Call nj1 light in reach. Side rails up X 1. 12:10 Thermoregulation: warm blanket given to patient. nj1 12:27 CT Stone Protocol In Process Unspecified. EDMS 13:04 Devonte Linder MD is Referral Physician. elizabeth 15:15 No provider procedures requiring assistance completed. IV discontinued, intact, mb9 bleeding controlled, No redness/swelling at site. Pressure dressing applied. Administered Medications: 11:54 Drug: NS 0.9% IV 1000 ml Route: IV; Rate: 1 bolus; Site: right antecubital; nj1 11:54 Drug: Ondansetron IVP 4 mg Route: IVP; Site: right antecubital; nj1 12:33 Follow up: Response: No adverse reaction nj1 11:56 Drug: Famotidine IVP 20 mg Route: IVP; Site: right antecubital; nj1 12:33 Follow up: Response: No adverse reaction nj1 11:58 Drug: morphine IVP or IV 4 mg Route: IVP; Infused Over: 4 mins; Site: right antecubital;nj1 12:33 Follow up: Response: No adverse reaction; Pain is decreased nj1 12:05 Drug: Ketorolac IVP 30 mg Route: IVP; Site: right antecubital; nj1 12:33 Follow up: Response: No adverse reaction; Pain is decreased nj1 12:08 Drug: Rocephin IV 1 grams Route: IV; Rate: per protocol; Site: right antecubital; nj1 12:33 Follow up: Response: No adverse reaction; IV Status: Completed infusion; IV Intake: 80ofyl7 13:08 Drug: NS 0.9% IV 1000 ml Route: IV; Rate: 1 bolus; Site: right antecubital; nj1 13:08 Drug: Flomax PO 0.4 mg Route: PO; nj1 14:18 Follow up: Response: No adverse reaction nj1 14:32 Drug: Ondansetron IVP 4 mg Route: IVP; Site: right antecubital; aa5 14:32 Drug: HYDROmorphone IVP 1 mg Route: IVP; Site: right antecubital; aa5 Intake: 12:33 IV: 50ml; Total: 50ml. nj1 Outcome: 13:05 Discharge ordered by . elizabeth 15:15 Discharged to home ambulatory. shaylee 15:15 Condition: stable 15:15 Discharge instructions given to patient, Instructed on discharge instructions, follow up and referral plans. Demonstrated understanding of instructions, follow-up care, medications, Prescriptions given X 4. 15:16 Patient left the ED. mb9 Signatures: Dispatcher [employer] EDUT Heriberto Ponce MD MD cha Williams, Irene, RN Teresa Connor RN RN [email or web address] Madelaine Daily RN RN [email or web address] Nicolette Olivares Norma, RN RN nj1
--- NOTE | 2022-12-10 13:05 | EDPHYS ---
Physician Documentation [facility] Name: Sowmya Bolanos Age: 37 yrs Sex: Female : 1985 Arrival Date: 12/10/2022 Time: 11:16 Bed 9 Private MD: JAMEY Physician Heriberto Ponce HPI: 12/10 12:59 This 37 yrs old Unknown Female presents to ER via Ambulatory with complaints of elizabeth Possible Kidney Stone. 12:59 The patient presents with abdominal pain. Onset: The symptoms/episode began/occurred elizabeth just prior to arrival, this morning. The patient complains of pain in the right mid back. The pain radiates to the right mid back and right low back. Onset: The symptoms/episode began/occurred this morning. Modifying factors: The symptoms are alleviated by nothing. the symptoms are aggravated by nothing. The patient presents with pain that is acute. The symptoms are located in the right mid back and right low back. Location: right mid back and right low back. 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 - Social history:: Smoking status: Patient/guardian denies using tobacco. - Family history:: not pertinent. ROS: 12:59 Constitutional: Negative for fever, chills, and weight loss, Eyes: Negative for injury, elizabeth pain, redness, and discharge, ENT: Negative for injury, pain, and discharge, Neck: Negative for injury, pain, and swelling, Cardiovascular: Negative for chest pain, palpitations, and edema, Respiratory: Negative for shortness of breath, cough, wheezing, and pleuritic chest pain, Abdomen/GI: Negative for abdominal pain, nausea, vomiting, diarrhea, and constipation, : Negative for injury, bleeding, discharge, and swelling, MS/Extremity: Negative for injury and deformity, Skin: Negative for injury, rash, and discoloration, Neuro: Negative for headache, weakness, numbness, tingling, and seizure, Psych: Negative for depression, anxiety, suicide ideation, homicidal ideation, and hallucinations, Allergy/Immunology: Negative for hives, rash, and allergies, Endocrine: Negative for neck swelling, polydipsia, polyuria, polyphagia, and marked weight changes, Hematologic/Lymphatic: Negative for swollen nodes, abnormal bleeding, and unusual bruising. 12:59 Back: Positive for pain at rest, flank pain, on the right. Exam: 12:59 Constitutional: This is a well developed, well nourished patient who is awake, alert, elizabeth and in no acute distress. Head/Face: Normocephalic, atraumatic. Eyes: Pupils equal round and reactive to light, extra-ocular motions intact. Lids and lashes normal. Conjunctiva and sclera are non-icteric and not injected. Cornea within normal limits. Periorbital areas with no swelling, redness, or edema. ENT: Nares patent. No nasal discharge, no septal abnormalities noted. Tympanic membranes are normal and external auditory canals are clear. Oropharynx with no redness, swelling, or masses, exudates, or evidence of obstruction, uvula midline. Mucous membranes moist. Neck: Trachea midline, no thyromegaly or masses palpated, and no cervical lymphadenopathy. Supple, full range of motion without nuchal rigidity, or vertebral point tenderness. No Meningismus. Chest/axilla: Normal chest wall appearance and motion. Nontender with no deformity. No lesions are appreciated. Cardiovascular: Regular rate and rhythm with a normal S1 and S2. No gallops, murmurs, or rubs. Normal PMI, no JVD. No pulse deficits. Respiratory: Lungs have equal breath sounds bilaterally, clear to auscultation and percussion. No rales, rhonchi or wheezes noted. No increased work of breathing, no retractions or nasal flaring. Abdomen/GI: Soft, non-tender, with normal bowel sounds. No distension or tympany. No guarding or rebound. No evidence of tenderness throughout. Skin: Warm, dry with normal turgor. Normal color with no rashes, no lesions, and no evidence of cellulitis. MS/ Extremity: Pulses equal, no cyanosis. Neurovascular intact. Full, normal range of motion. Neuro: Awake and alert, GCS 15, oriented to person, place, time, and situation. Cranial nerves II-XII grossly intact. Motor strength 5/5 in all extremities. Sensory grossly intact. Cerebellar exam normal. Normal gait. Psych: Awake, alert, with orientation to person, place and time. Behavior, mood, and affect are within normal limits. 12:59 Back: pain, that is moderate, ROM is painful, normal spinal alignment noted, CVA tenderness, that is mild, is noted on the right. Vital Signs: 11:41 Resp 16; Weight 93.44 kg; Height 5 ft. 3 in. ; Pain 7/10; iw 12:05 BP 117 / 81; Pulse 79; Resp 18; Pulse Ox 98% ; Pain 10/10; nj1 12:33 BP 114 / 69; Pulse 73; Resp 16; Pulse Ox 100% ; Pain 3/10; nj1 13:08 BP 135 / 91; Pulse 74; Resp 17; Pulse Ox 100% ; Pain 2/10; nj1 11:41 Body Mass Index 36.49 (93.44 kg, 160.02 cm) iw 11:41 Pain Scale: Adult iw 12:05 Pain Scale: Adult nj1 12:33 Pain Scale: Adult nj1 13:08 Pain Scale: Adult nj1 MDM: 11:30 Patient medically screened. [facility] 13:02 Differential diagnosis: nephrolithiasis, pyelonephritis, pancreatitis, diverticulitis, elizabeth non-specific abd pain. Data reviewed: vital signs, nurses notes, lab test result(s), radiologic studies, CT scan. Consideration of Admission/Observation Escalation of care including admission/observation considered. I considered the following discharge prescriptions or medication management in the emergency department Medications were administered in the Emergency Department. See MAR. Independent interpretation of the following test(s) in the Emergency Department CT Scan: My interpretation is ct stone. Care significantly affected by the following chronic conditions: kidney stones, depression, anxiety. Counseling: I had a detailed discussion with the patient and/or guardian regarding: the historical points, exam findings, and any diagnostic results supporting the discharge/admit diagnosis, lab results, radiology results, the need for outpatient follow up, for definitive care, a family practitioner, a urologist. 12/10 11:33 Order name: CBC with Diff; Complete Time: 12:00 [facility] 12/10 11:33 Order name: CMP; Complete Time: 12:44 [facility] 12/10 11:33 Order name: Lipase; Complete Time: 12:44 [facility] 12/10 11:33 Order name: Test, Urine; Complete Time: 12:00 [facility] 12/10 11:33 Order name: Urinalysis w/ reflexes; Complete Time: 12:00 [facility] 12/10 11:33 Order name: CT Stone Protocol; Complete Time: 12:44 [facility] 12/10 11:33 Order name: IV Saline Lock; Complete Time: 11:41 [facility] 12/10 11:33 Order name: Labs collected and sent; Complete Time: 11:41 elizabeth Administered Medications: 11:54 Drug: NS 0.9% IV 1000 ml Route: IV; Rate: 1 bolus; Site: right antecubital; nj1 11:54 Drug: Ondansetron IVP 4 mg Route: IVP; Site: right antecubital; nj1 12:33 Follow up: Response: No adverse reaction nj1 11:56 Drug: Famotidine IVP 20 mg Route: IVP; Site: right antecubital; nj1 12:33 Follow up: Response: No adverse reaction nj1 11:58 Drug: morphine IVP or IV 4 mg Route: IVP; Infused Over: 4 mins; Site: right antecubital;nj1 12:33 Follow up: Response: No adverse reaction; Pain is decreased nj1 12:05 Drug: Ketorolac IVP 30 mg Route: IVP; Site: right antecubital; nj1 12:33 Follow up: Response: No adverse reaction; Pain is decreased nj1 12:08 Drug: Rocephin IV 1 grams Route: IV; Rate: per protocol; Site: right antecubital; nj1 12:33 Follow up: Response: No adverse reaction; IV Status: Completed infusion; IV Intake: [id number] 13:08 Drug: NS 0.9% IV 1000 ml Route: IV; Rate: 1 bolus; Site: right antecubital; nj1 13:08 Drug: Flomax PO 0.4 mg Route: PO; nj1 14:18 Follow up: Response: No adverse reaction nj1 14:32 Drug: Ondansetron IVP 4 mg Route: IVP; Site: right antecubital; aa5 14:32 Drug: HYDROmorphone IVP 1 mg Route: IVP; Site: right antecubital; aa5 Disposition Summary: 12/10/22 13:05 Discharge Ordered Location: Home elizabeth Problem: new elizabeth Symptoms: have improved elizabeth Condition: Stable elizabeth Diagnosis - Hydronephrosis with renal and ureteral calculous obstruction - 6 mm right proximal elizabeth Followup: elizabeth - With: Private Physician - When: 2 - 3 days - Reason: Recheck today's complaints, Continuance of care, Re-evaluation by your physician Followup: elizabeth - With: Devonte Linder MD - When: 2 - 3 days - Reason: Recheck today's complaints, Continuance of care, Re-evaluation by your physician Discharge Instructions: - Discharge Summary Sheet elizabeth - Kidney Stones elizabeth - Kidney Stones, [id number] elizabeth - Hydronephrosis elizabeth - Dietary Guidelines to Help Prevent Kidney Stones elizabeth Forms: - Medication Reconciliation Form [facility] - Thank You Letter elizabeth - Antibiotic Education elizabeth - Prescription Opioid Use [facility] Prescriptions: - Flomax 0.4 mg Oral capsule - take 1 capsule by ORAL route every day at bedtime; 30 capsule; Refills: 0, [facility] Product Selection Permitted - acetaminophen-codeine 300-60 mg Oral tablet - take 2 tablet by ORAL route every 6 hours as needed for pain; 24 tablet; [facility] Refills: 0, Product Selection Permitted - Zofran 4 mg Oral Tablet - take 1 tablet by ORAL route every 12 hours As needed; 20 tablet; Refills: 0, [facility] Product Selection Permitted - Cipro 500 mg Oral Tablet - take 1 tablet by ORAL route every 12 hours for 7 days; 14 tablet; Refills: 0, [facility] Product Selection Permitted Signatures: Dispatcher [employer] Heriberto Castillo MD MD cha Williams, Irene RN KERRIE iw Teresa Pete RN RN aa5 Flor Miranda RN RN nj1
[2022-12-10] MEDS ORDERED: TAMSULOSIN 0.4 MG SR CAP ONE (13:09)
[2022-12-10] MEDS ORDERED: HYDROMORPHONE HCL 1 MG/ML INJ ONE (14:37)
[2022-12-10 15:46] VITALS: O2SAT 100
[2022-12-10 15:48] VITALS: BP 135/91
== END 2022-12-10 15:16 | disposition home or self-care (01) ==
LOC: ER 11:16
DX: N13.2 Hydronephrosis with renal and ureteral calculous obstruction (principal); Z87.442 Personal history of urinary calculi
CPT/HCPCS: 85025; 81001; 36415; 81025; 83690; 80053; 76377; 74176; J1170; J2405 ×2; J7030 ×2; J0696